=== PATIENT | female | born 1985 | race Caucasian/White ===

== ENCOUNTER 2017-04-28 16:42 | Emergency (ER) | payer OTHER, SELFPAY ==
[2017-04-28 16:56] VITALS: BP 118/67; PULSE 87; RESP 20; TEMP 37.1; O2SAT 100; BMI 35.6
--- NOTE | 2017-04-28 17:55 | HMH.EDUTC ---
[facility] [place]: [place]ed [place] Disposition: Home, Self-Care Condition on Discharge: Good Instructions: DI for Tooth Abscess, Tooth Abscess Additional Instructions: TYLENOL OR ibuprofen for pain Follow-up with dentist this week If symptoms worsen or do not improve return or be seen in the ER Prescriptions: Amoxicillin [Amoxicillin 500mg Tab] 500 mg PO BID 10 Days #20 tab Referrals: Dali Andrew PA [Primary Care Provider] - Time of Disposition: 18:08 Medical Decision Making Vital Signs: 04/28/17 16:56 Temperature 98.8 F Temperature Source Temporal Artery Scan Pulse Rate [Right Radial] 87 Respiratory Rate 20 Blood Pressure [Right Arm] 118/67 Blood Pressure Mean [Right Arm] 84 Blood Pressure Source [Right Arm] Automatic Cuff Blood Pressure Position [Right Arm] Sitting 02 Sat by Pulse Oximetry 100 Oxygen Delivery Method Room Air - Luis Felipe Inquiry Pt receiving controlled substance: No [facility] [place] - General Stated complaint: dental pain Time Seen by Provider: 04/28/17 17:56 Mode of Arrival: Ambulatory Source of Information: Patient Limitations: No Limitations Description of Symptoms (Recalled from Triage Doc. by RN): PATIENT STATES SHE IS HAVING DENTAL PAIN ON BOTTOM LEFT SIDE HEENT Symptoms (Recalled from RN notes): No Resp Symptoms (Recalled from RN notes): No Skin Symptoms (Recalled from RN notes): No MS Symptoms (Recalled from RN notes): No Functional Status (Recalled from RN notes): NA - History of Present Illness Provider Complaint: A 1-year-old female presents today for dental pain on the left lower gum. Patient states she has an abscess for over 4 months but has gotten worse the last 4 weeks. Patient states she has had abscess that burst and she felt the infection in her mouth and now has started to feel bad. - Related Data Home Medications Medication Instructions Recorded Confirmed Metoprolol Tartrate [Metoprolol 100 mg PO DAILY 04/28/17 04/28/17 Tartrate 100mg Tablet] Previous Rx's Medication Instructions Recorded Amoxicillin [Amoxicillin 500mg Tab] 500 mg PO BID 10 Days #20 tab 04/28/17 Allergies Allergy/AdvReac Type Severity Reaction Status Date / Time No Known Allergies Allergy Unverified 03/26/17 14:43 - Worker's Comp Is this a Worker's Comp case?: No Is this an [facility] Worker's Comp?: No Is this a [facility] Worker's Comp?: No [facility] History I have reviewed the patient's past medical history: Yes 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: Denies:: Cancer, Diabetes Mellitus Type 1, Diabetes Mellitus Type 2, Internal Pacemaker, MRSA Other Surgeries: No: Pacemaker Amputation: No Fractures: No - *Social History Educational Level: Attended 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iovascular: Reports system reviewed and no additional complaints, except as docu - Respiratory Respiratory: Yes system reviewed and no additional complaints, except as docu - Genitourinary Female Genitourinary: Reports system reviewed and no additional complaints, except as docu - Musculoskeletal Musculoskeletal: Reports system reviewed and no additional complaints, except as docu - Integumentary/Breasts Skin/Breast: Reports system reviewed and no additional complaints, except as docu - Neurologic Neurologic: Reports system reviewed and no additional complaints, except as docu Physical Exam - General General appearance
--- NOTE | 2017-04-28 17:59 | ED_ITS ---
[facility] [place]: [place]cessed [place] Disposition: Home, Self-Care Condition on Discharge: Good Instructions: DI for Tooth Abscess, Tooth Abscess Additional Instructions: TYLENOL OR ibuprofen for pain Follow-up with dentist this week If symptoms worsen or do not improve return or be seen in the ER Prescriptions: Amoxicillin [Amoxicillin 500mg Tab] 500 mg PO BID 10 Days #20 tab Referrals: Dali Andrew PA [Primary Care Provider] - Time of Disposition: 18:08 Medical Decision Making Vital Signs: 04/28/17 16:56 Temperature 98.8 F Temperature Source Temporal Artery Scan Pulse Rate [Right Radial] 87 Respiratory Rate 20 Blood Pressure [Right Arm] 118/67 Blood Pressure Mean [Right Arm] 84 Blood Pressure Source [Right Arm] Automatic Cuff Blood Pressure Position [Right Arm] Sitting 02 Sat by Pulse Oximetry 100 Oxygen Delivery Method Room Air - Luis Felipe Inquiry Pt receiving controlled substance: No [facility] [place] - General Stated complaint: dental pain Time Seen by Provider: 04/28/17 17:56 Mode of Arrival: Ambulatory Source of Information: Patient Limitations: No Limitations Description of Symptoms (Recalled from Triage Doc. by RN): PATIENT STATES SHE IS HAVING DENTAL PAIN ON BOTTOM LEFT SIDE HEENT Symptoms (Recalled from RN notes): No Resp Symptoms (Recalled from RN notes): No Skin Symptoms (Recalled from RN notes): No MS Symptoms (Recalled from RN notes): No Functional Status (Recalled from RN notes): NA - History of Present Illness Provider Complaint: A 1-year-old female presents today for dental pain on the left lower gum. Patient states she has an abscess for over 4 months but has gotten worse the last 4 weeks. Patient states she has had abscess that burst and she felt the infection in her mouth and now has started to feel bad. - Related Data Home Medications Medication Instructions Recorded Confirmed Metoprolol Tartrate [Metoprolol 100 mg PO DAILY 04/28/17 04/28/17 Tartrate 100mg Tablet] Previous Rx's Medication Instructions Recorded Amoxicillin [Amoxicillin 500mg Tab] 500 mg PO BID 10 Days #20 tab 04/28/17 Allergies Allergy/AdvReac Type Severity Reaction Status Date / Time No Known Allergies Allergy Unverified 03/26/17 14:43 - Worker's Comp Is this a Worker's Comp case?: No Is this an [facility] Worker's Comp?: No Is this a [facility] Worker's Comp?: No [facility] History I have reviewed the patient's past medical history: Yes 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: Denies:: Cancer, Diabetes Mellitus Type 1, Diabetes Mellitus Type 2, Internal Pacemaker, MRSA Other Surgeries: No: Pacemaker Amputation: No Fractures: No - *Social History Educational Level: Attended 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
== END 2017-04-28 18:11 | disposition home or self-care (01) ==
PROVIDERS: Emergency Provider Nurse Practitioner Family; Family Provider Physician Assistant; PCP Physician Assistant
DX: K04.7 Periapical abscess without sinus (principal); Z79.899 Other long term (current) drug therapy
CPT/HCPCS: 96372; 99201

== ENCOUNTER → 2017-11-06 10:02 | Outpatient (CLI) | payer OTHER, SELFPAY ==
--- NOTE | 2017-11-06 | MM_ITS ---
MM Dig mamm DX unilat RT CAD Right breast ultrasound complete with axilla: INDICATION: Probable abnormality in the right axillary region ORDERING PHYSICIAN: VERNON Finley PATIENT AGE: 32 years COMPARISON: None TECHNIQUE: Frontal views of the right breast along with right breast ultrasound. FINDINGS: Right breast ultrasound: Right breast ultrasound was originally performed showing some nonspecific areas of decreased echogenicity in the right axilla. Some of these areas had a somewhat flame shaped appearance. The lobular areas do not appear to elongate as breast tissue. A discrete mass was not able to be identified despite repeat imaging. There was some nondescript areas of decreased echogenicity. Axillary breast tissue may cause these findings. The patient also volunteer the information that the swelling in the right axilla fluctuated with her menstrual cycle Right mammogram: There is average to dense fibroglandular tissue. A marker is placed over the palpable abnormality. There does appear to be some maxillary breast tissue in this region with some nondescript fibroglandular elements noted. IMPRESSION: The findings are suggestive/consistent with right axillary/accessory breast tissue BI-RADS Category: 3 Benign Finding Short Term Follow-up RECOMMENDED FOLLOW-UP: 3M - 3 MONTH FOLLOWUP Recommend 3 month mammographic and sonographic follow-up (A letter has been sent to the patient regarding results of the study.)
--- NOTE | 2017-11-06 10:03 | US_ITS ---
US extremity RT limited CLINICAL INDICATION: ITS.REASON: right axilla swelling ORDERING PHYSICIAN: VERNON Finley PATIENT AGE: 32 years Comparison: None FINDINGS: General survey was performed of the right axilla. No discrete mass or fluid collection is evident. There is some heterogeneous echogenicity in the right axilla having the same echotexture as breast tissue. Suspect axillary breast tissue. The patient did volunteer the information that this area becomes more prominent with her menstrual cycle. A mammogram was performed of the right axilla and demonstrated some nonspecific areas of increased density which had the appearance of fibroglandular tissue interspersed with fat IMPRESSION: Heterogeneous echogenicity in the right axilla felt to represent axillary breast tissue. Recommend 6 month mammographic and sonographic follow-up to confirm stability. If palpable abnormality persists or becomes more prominent then, CT may be of further value
== END ==
PROVIDERS: Family Provider Physician Assistant; PCP Physician Assistant; Visit Provider Physician Assistant
DX: R22.31 Localized swelling, mass and lump, right upper limb (principal)
CPT/HCPCS: 76882; 77065

== ENCOUNTER → 2018-02-10 13:49 | Outpatient (CLI) | payer OTHER, SELFPAY ==
--- NOTE | 2018-02-10 13:51 | MM_ITS ---
MM Dig mamm DX unilat RT CAD, US breast RT complete Ordering Physician: VERNON Finley Patient Age: 32 years Female COMPARISON: Prior right mammogram November 06, 2017 CT chest December 2016 & December 01, 2017 INDICATION: And tender, palpable area upper-outer quadrant right breast. Right axillary thickness and pain. --DIAGNOSTIC RIGHT MAMMOGRAM with additional spot views towards axillary tail-- TECHNIQUE: Full CC, MLO view along with spot MLO views axillary tail & right axilla . Spot views in the area of palpable fullness, and tenderness. FINDINGS: The spot views towards the deep axillary region and region tenderness/fullness show no areas of concern. A skin marker is placed over this area.... If anything perhaps question some mild additional prominence of fatty tissue slightly bulging here-which could reflect lipoma here; but there is no significant mass. No areas of concern. Nor adenopathy at this specific area. Otherwise on the standard mammogram images today and previous studies show no areas of significant concern or abnormality. Breast tissue towards the axillary tail right breast is slightly more evident on right than left based on prior CT chest studies used as comparison, but does compress out on a combination of views. No change since Baseline November 2017 right mammogram On also note the patient had previous CT chest 2016, and November 2017.... Estimated these images show fibroglandular breast elements most evident towards upper-outer quadrant right breast more so than left but appear stable with no significant new findings November [address] chest RIGHT BREAST ULTRASOUND attention right axillary region Ultrasound was performed a focus seen on the axillary tail and axilla/CZ No no abnormalities identified. No areas of concern are identified. No cyst nor solid nodule. Mainly fatty tissue encountered. -------. IMPRESSION: 1. No areas of concern with imaging... No interval change The the tender/palpable fullness towards the towards axilla & deep axillary reveals no abnormalities on today's ultrasound nor mammogram images.. Only would note slight more focal fatty tissue axillary region on mammography spot views, at the palpable region....-This appearance Possibly could reflect a small underlying benign lipoma. It BI-RADS Category: 2 Benign Finding(s) RECOMMENDED FOLLOW-UP: 1YR 1 YEAR FOLLOW-UP A letter has been sent to the patient regarding results of the study.)
== END ==
PROVIDERS: PCP Physician Assistant; Visit Provider Physician Assistant
DX: R92.8 Other abnormal and inconclusive findings on diagnostic imaging of breast (principal)
CPT/HCPCS: 76641; 77065

== ENCOUNTER → 2018-02-24 11:25 | Outpatient (CLI) | payer OTHER, SELFPAY ==
--- NOTE | 2018-02-24 11:28 | XR_ITS ---
XR chest 2V HISTORY: Cough wheezing chest discomfort. ITS.REASON: Cough ORDERING PHYSICIAN: VERNON Finley PATIENT AGE: 32 years Technique: PA and lateral chest COMPARISON: 11/30/2017 CXRNovember 2017 FINDINGS:. The lungs are well expanded clear with no active disease. Normal pulmonary vascularity. The heart juliana and mediastinal structures appear satisfactory. There is mild dextrocurvature of the T-spine. This is similar to previous chest film from November. & February 2017 The cardiomediastinal silhouette and pulmonary vascularity are within normal limits. The lungs are clear without infiltrates, suspicious nodules, or pleural effusions. No acute bony abnormalities. IMPRESSION: Stable chest nothing definite acute. Mild dextroscoliosis T-spine again noted
== END ==
PROVIDERS: PCP Physician Assistant; Visit Provider Physician Assistant
DX: R05 Cough (principal)
CPT/HCPCS: 71046

== ENCOUNTER → 2018-03-10 10:49 | Outpatient (CLI) | payer OTHER, SELFPAY ==
[2018-03-10 11:18] LABS: Basophils % 0.7 % (0.1-2.0); Eosinophils # 0.4 K/mm3 (0.0-0.4); Eosinophils % 8.3 % (0.1-12.0); Hematocrit 39.1 % (37.0-47.0); Hemoglobin 12.8 g/dL (12.2-16.2); Lymphocytes # 1.5 K/mm3 (0.7-4.5); Lymphocytes % 28.3 % (10-50); Mean Corpuscular HGB Conc 32.6 g/dL (31.8-35.4); Mean Corpuscular Hemoglobin 28.6 pg (27.0-31.2); Mean Corpuscular Volume 87.8 fl (81-99); Mean Platelet Volume 7.5 fl (7.4-10.4); Monocytes # 0.3 K/mm3 (0.1-1.0); Monocytes % 6.2 % (1.7-9.3); Neutrophils % 56.6 % (37.0-80.0); Platelet Count 276 K/mm3 (142-424); Red Blood Count 4.45 M/mm3 (4.20-5.40); Red Cell Distribution Width 13.4 % (11.5-17.5); White Blood Count 5.3 K/mm3 (4.8-10.8)
[2018-03-10 13:10] LABS: Alanine Aminotransferase 23 U/L (12-78); Albumin Level 3.7 gm/dL (3.4-5.0); Alkaline Phosphatase 78 U/L (46-116); Anion Gap 13.2 mEq/L (5-15); Aspartate Amino Transferase 15 U/L (15-37); Bilirubin,Total 0.5 mg/dL (0.2-1.0); Blood Urea Nitrogen 8 mg/dL (7-18); Calcium 8.8 mg/dL (8.5-10.1); Carbon Dioxide 26 mmol/L (21.0-32.0); Chloride 105 mmol/L (98-107); Creatinine,Serum 0.65 mg/dL (0.55-1.02); Estimated Glomerular Filt Rate 104 ml/min (>60); GFR (African American) 126 ML/MIN (>60); Globulin 3.8 gm/dl (1.3-3.2); Glucose 89 mg/dL (74-106); Potassium 4.2 mmoL/L (3.5-5.1); Sodium 140 mmol/L (136-145); Total Protein,Serum 7.5 gm/dL (6.4-8.2)
== END ==
PROVIDERS: Visit Provider Surgery
DX: Z01.818 Encounter for other preprocedural examination (principal)
CPT/HCPCS: 36415; 80053; 85025

== ENCOUNTER → 2019-03-16 13:07 | Outpatient (CLI) | payer OTHER, SELFPAY ==
--- NOTE | 2019-03-16 13:09 | US_ITS ---
PROCEDURE: MM DIG MAMM BI DX W/CAD CLINICAL INDICATION: 1 yr fu-- rt breast nodule the COMPARISON: DXRT MM Dig mamm DX unilat RT CAD from 11/06/2017 DXRT MM Dig mamm DX unilat RT CAD from 02/10/2018 US BREAST RT COMPLETE from 03/16/2019 TECHNIQUE: Standard images performed along with spot compression views and right breast ultrasound FINDINGS: Average fibroglandular tissue. No malignant appearing mass or malignant-appearing microcalcification. There is asymmetric density once again noted in the upper outer aspect of the right breast. This is not significantly changed from 11/06/2017 consistent with asymmetric fibroglandular tissue. There is some lucency noted in this region which may be due to a lipoma as well Right breast ultrasound: No cystic or solid lesions evident within the breast. Small nodes are present in the axilla. IMPRESSION: BI-RAD Category: 2 Benign Finding(s) FOLLOW-UP: 1YR 1 Year Follow-up (A letter has been sent to the patient regarding results of the study.) Dictated by: Steve Vivas MD 03/21/2019 10:52 Electronically signed by Steve Vivas MD in [facility] 03/21/2019 10:52
== END ==
PROVIDERS: PCP Physician Assistant; Visit Provider Surgery
DX: N63.10 Unspecified lump in the right breast, unspecified quadrant (principal); N64.4 Mastodynia
CPT/HCPCS: 76641; 77066

== ENCOUNTER → 2019-05-28 09:24 | Outpatient (CLI) | payer OTHER, SELFPAY ==
--- NOTE | 2019-05-28 09:37 | CT_ITS ---
PROCEDURE: CT ABDOMEN PELVIS WO CON CLINICAL INDICATION: Right flank pain, hematuria COMPARISON: ABDPELW/O CT ABD PELVIS W/O CONTRAST from 11/28/2016 TECHNIQUE: Axial images obtained with sagittal and coronal reformats. All CT scans at the facility use one or more dose reduction, viz: automated exposure control, ma/kV adjustment per patient size (including targeted exams where dose is matched to indication, i.e. head), or iterative reconstruction technique. FINDINGS: LOWER THORAX: No acute finding. There is lingular scarring. ABDOMEN & PELVIS: The liver, spleen, pancreas, adrenal glands, and kidneys show no acute finding. No intestinal obstruction or free air. No evidence of appendicitis or diverticulitis. No pelvic mass, abnormal fluid collection, or focal inflammatory change of the pelvis. No acute bony anomalies. 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 Metallic intrauterine device is in place. The urinary bladder is nondistended. Increased attenuation with gas collections are seen in the subcutaneous fat planes over the right gluteal region. Site of medicinal injection is suspected. Clinical correlation is recommended. Infection could cause this appearance. IMPRESSION: No acute finding Dictated by: Celestine Li 05/28/2019 10:20 Electronically signed by Celestine Li in [facility] 05/28/2019 10:20
== END ==
PROVIDERS: PCP Physician Assistant; Visit Provider Physician Assistant
DX: R10.9 Unspecified abdominal pain (principal); R31.9 Hematuria, unspecified
CPT/HCPCS: 74176

== ENCOUNTER 2019-12-11 15:10 | Emergency (ER) | payer OTHER, SELFPAY ==
[2019-12-11 15:24] VITALS: BP 133/91; PULSE 101; RESP 19; TEMP 37.1; O2SAT 98; BMI 33.0
--- NOTE | 2019-12-11 15:30 | HMH.EDUTC ---
[facility] [place] Disposition Clinical Impression: Tooth pain Insect bite Qualifiers: Site of insect bite: ankle Laterality: right Disposition: Home, Self-Care Condition on Discharge: Good Instructions: DI for Dental Pain, Ibuprofen, Acetaminophen (Alternative Therapy) Additional Instructions: Continue taking Amoxicillin and follow up with Dentist as scheduled *Use dental balls as advised in the [facility] Over the counter Motrin and/or Tylenol as advised on the package for pain and fever Follow up with Family doctor if needed FOllow up with Dentist as scheduled Return if needed Straight to ER if any life threatening symptoms Prescriptions: Mupirocin [Bactroban 2% Ointment 22gm tube] 1 applicatio TP TID 10 Days #1 tube Transmission Status: Pending to [id number] Referrals: Dali Andrew PA [Primary Care Provider] - As needed Time of Disposition: 15:39 Medical Decision Making - Luis Felipe Inquiry Pt receiving controlled substance: No Luis Felipe was queried for this patient: No Vital Signs: 12/11/19 15:24 Temperature 98.7 F Temperature Source Oral Pulse Rate [Right Brachial] 101 H Respiratory Rate 19 Blood Pressure [Right Arm] 133/91 H Blood Pressure Mean [Right Arm] 105 Blood Pressure Source [Right Arm] Automatic Cuff Blood Pressure Position [Right Arm] Sitting 02 Sat by Pulse Oximetry 98 Oxygen Delivery Method Room Air [facility] [place] HPI - General Stated complaint: dental pain spider bite/sting on R ankle Time Seen by Provider: 12/11/19 15:31 Mode of Arrival: Ambulatory Source of Information: Patient Limitations: No Limitations Description of Symptoms (Recalled from Triage Doc. by RN): PATIENT C/O DENTAL PAIN AND BLISTER TO BACK OF RIGHT ANKLE X 3 DAYS. SHE WAS PRESCRIBED AMOXICILLIN ON 12/08 BUT STATES IT'S NOT BETTER HEENT Symptoms (Recalled from RN notes): Yes Resp Symptoms (Recalled from RN notes): No Skin Symptoms (Recalled from RN notes): Yes MS Symptoms (Recalled from RN notes): No Functional Status (Recalled from RN notes): WNL - History of Present Illness Provider Complaint: Patient states that she has been having dental pain from a broken filling States that she saw the Dentist on Saturday and was given amoxicillin but still having pain Denies swelling or abscess. States that also she has been cleaning out an estate and thinks she may have been bitten by spiders States that she noticed blister like area on her right ankle area and she has been using neosporin on it but not got any better - Related Data Home Medications Medication Instructions Recorded Confirmed Amoxicillin [Amoxicillin 500mg 500 mg PO Q6H 12/11/19 12/11/19 Cap] Previous Rx's Medication Instructions Recorded Mupirocin [Bactroban 2% Ointment 1 applicatio TP TID 10 Days #1 tube 12/11/19 22gm tube] Allergies Allergy/AdvReac Type Severity Reaction Status Date / Time No Known Allergies Allergy Verified 05/28/19 08:51 - Worker's Comp Is this a Worker's Comp case?: No [facility] History - Hepatitis A Screen Drug use history?: No High risk sexual behaviors?: No History of sexually transmitted infection?: No Currently employed?: No Childcare worker?: No Do you have indoor plumbing?: Yes Do you have electricity?: Yes Attestation statement:: This patient has been screened for Hepatitis A risk factors. I have reviewed the patient's past medical history: Yes 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: Reports:: Arrhythmia, Hypertension, Pulmonary Embolism Denies:: Cancer, Diabetes Mellitus Type 1, Diabetes Mellitus Type 2, Internal Pacemaker, MRSA, Seizures Other 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: Denies: Blood Transfusion Reaction Other Surgeries: Yes: No Previous Surgery, Other. No: Pacemaker Amputation: No Fractures: Yes (ARM) Comment: Dental surgery - Social History Smoking Status: Never smoker Alcohol Intake: never Alcohol Intake Frequency:: a few times a month Substance Use Type: denies use Occupational Status: other Housing: house
[2019-12-11 15:48] VITALS: BP 133/91; PULSE 101; RESP 19; TEMP 37.1; O2SAT 98
== END 2019-12-11 15:50 | disposition home or self-care (01) ==
PROVIDERS: Emergency Provider Nurse Practitioner; PCP Physician Assistant
DX: K08.89 Other specified disorders of teeth and supporting structures (principal); S90.561A Insect bite (nonvenomous), right ankle, initial encounter; W57.XXXA Bitten or stung by nonvenomous insect and other nonvenomous arthropods, initial encounter; I10 Essential (primary) hypertension; Z86.711 Personal history of pulmonary embolism
CPT/HCPCS: 99201

== ENCOUNTER → 2019-12-15 17:35 | Outpatient (CLI) | payer OTHER, SELFPAY | PROVIDERS: Visit Provider Physician Assistant | DX: W57.XXXA Bitten or stung by nonvenomous insect and other nonvenomous arthropods, initial encounter (principal); M25.571 Pain in right ankle and joints of right foot | CPT/HCPCS: 87070; 87077; 87186; 87205 ==

== ENCOUNTER 2020-03-26 11:56 | Emergency (ER) | payer OTHER, SELFPAY ==
[2020-03-26 12:00] VITALS: BP 136/77; PULSE 96; RESP 16; TEMP 36.9; O2SAT 96; BMI 36.0
--- NOTE | 2020-03-26 12:29 | HMH.EDUTC ---
[facility] [place] Clinical Impression: Exposure to COVID-19 virus, Absent sense of smell Disposition: Home, Self-Care Condition on Discharge: Good Instructions: Preventing the Spread of Coronavirus Discharge Instructions Additional Instructions: Drink plenty of fluids. Take tylenol for pain or fever. Return if you begin to have difficulty breathing. Follow up with your regular doctor. GO TO THE ER FOR ANY WORSENING SYMPTOMS Referrals: Sai Talbert MD [Primary Care Provider] - Time of Disposition: 12:33 Medical Decision Making - Medical Records Medical records reviewed: No: I reviewed the patient's medical records. - Luis Felipe Inquiry Pt receiving controlled substance: No Vital Signs: 03/26/20 12:00 03/26/20 12:33 Temperature 98.5 F 98.5 F Temperature Source Oral Pulse Rate 96 H Pulse Rate [Right Brachial] 96 H Respiratory Rate 16 16 Blood Pressure 136/77 Blood Pressure [Right Arm] 136/77 Blood Pressure Mean [Right Arm] 96 Blood Pressure Source [Right Arm] Automatic Cuff Blood Pressure Position [Right Arm] Sitting 02 Sat by Pulse Oximetry 96 Oxygen Delivery Method Room Air - Lab Data Lab Results 03/26/20 12:05: SARS-CoV-2 (PCR) Not detected [facility] [place] - General Stated complaint: loss of taste Time Seen by Provider: 03/26/20 12:29 Mode of Arrival: Ambulatory Source of Information: Patient Limitations: No Limitations Description of Symptoms (Recalled from Triage Doc. by RN): PATIENT C/O LOSS OF TASTE AND SMELL THAT STARTED LAST NIGHT AND COUGH THAT HAS BEEN ON AND OFF FOR SEVERAL DAYS HEENT Symptoms (Recalled from RN notes): Yes Resp Symptoms (Recalled from RN notes): Yes Skin Symptoms (Recalled from RN notes): No MS Symptoms (Recalled from RN notes): No Functional Status (Recalled from RN notes): WNL - History of Present Illness Provider Complaint: She states that since yesterday she has had trouble tasting or smelling her food or anything else. She denies feeling bad. She denies any known exposure to covid. - Related Data Allergies Allergy/AdvReac Type Severity Reaction Status Date / Time No Known Allergies Allergy Verified 12/15/19 13:10 - Worker's Comp Is this a Worker's Comp case?: No [facility] History - Hepatitis A Screen Drug use history?: No High risk sexual behaviors?: No History of sexually transmitted infection?: No Currently employed?: No Childcare worker?: No Do you have indoor plumbing?: Yes Do you have electricity?: Yes Attestation statement:: This patient has been screened for Hepatitis A risk factors. I have reviewed the patient's past medical history: Yes 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: Reports:: Arrhythmia, Hypertension, Pulmonary Embolism Denies:: Cancer, Diabetes Mellitus Type 1, Diabetes Mellitus Type 2, Internal Pacemaker, MRSA, Seizures Other 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: Denies: Blood Transfusion Reaction Other Surgeries: Yes: No Previous Surgery, Other. No: Pacemaker Amputation: No Fractures: Yes (ARM) Comment: Dental surgery - Social History Smoking Status: Never smoker Alcohol Intake: never Alcohol Intake Frequency:: a few times a month Substance Use Type: denies use Occupational Status: other Housing: house Household Members: family Family Hx:: No significant family history ROS Obtained: Yes All systems reviewed & no additional complaints - Constitutional Constitutional: Reports system reviewed and no additional complaints, except as docu - Eyes Eyes: Reports system reviewed and no additional complaints, except as docu - ENT Ears, Nose, Mouth, and Throat: Reports system reviewed and no additional complaints, except as docu - Cardiovascular Cardiovascular: Reports system reviewed and no additional complaints, except as docu - Respiratory Respiratory: Yes system reviewed and no additional complaints, except as docu - Gastrointestinal Gastrointestingal: Reports: system reviewed and no additional complaints, except as docu Physi
[2020-03-26 12:33] VITALS: BP 136/77; PULSE 96; RESP 16; TEMP 36.9; O2SAT 96
[2020-03-27 08:26] LABS: Covid-19 Nasal PCR Sendout UK Not Detected
== END 2020-03-26 12:35 | disposition home or self-care (01) ==
PROVIDERS: Emergency Provider Nurse Practitioner Family; PCP Emergency Medicine
DX: Z20.828 Contact with and (suspected) exposure to other viral communicable diseases (principal); R43.9 Unspecified disturbances of smell and taste; I10 Essential (primary) hypertension
CPT/HCPCS: 99201; U0003

== ENCOUNTER → 2020-04-21 10:58 | Outpatient (CLI) | payer OTHER, SELFPAY ==
--- NOTE | 2020-04-21 11:04 | XR_ITS ---
PROCEDURE: XR RIBS RT MIN 3V W CXR1V CLINICAL INDICATION: right rib pain COMPARISON: CR CXR2V XR chest 2V from 11/30/[address] angio chest from 12/01/2017 CR CXR2V XR chest 2V from 02/24/2018 CR XR CHEST 2V from 11/26/2018 FINDINGS: Frontal view of the chest shows no acute finding. There is a faint opacity in the left mid lower lung zone overlying the 5th rib anteriorly nonspecific. There is mild midthoracic curvature convex right. No rib fracture dislocation or lytic or blastic change is evident. IMPRESSION: Negative right ribs Dictated by: Steve Vivas MD 04/21/2020 16:35 Steve Vivas MD in [place] 04/21/2020 16:35
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
--- NOTE | 2020-04-21 11:04 | XR_ITS ---
PROCEDURE: XR HIP RT 2-3V W/PELVIS CLINICAL INDICATION: LBP radiating into right hip Right hip pain COMPARISON: No exams were available for comparison FINDINGS: No fracture or dislocation is evident. No significant degenerative change. No lytic or blastic change. Unremarkable soft tissues. An IUD is in place. Spina bifida occulta involves the L5 vertebral body. IMPRESSION: Negative right hip Dictated by: Steve Vivas MD 04/21/2020 16:36 Steve Vivas MD in [place] 04/21/2020 16:36
[2020-04-21 16:12] LABS: Basophils % 0.5 % (0.1-2.0); Eosinophils # 0.1 K/mm3 (0.0-0.4); Eosinophils % 1.4 % (0.1-12.0); Hematocrit 44.6 % (37.0-47.0); Hemoglobin 14.7 g/dL (12.2-16.2); Lymphocytes # 1.9 K/mm3 (0.7-4.5); Mean Corpuscular HGB Conc 32.9 g/dL (31.8-35.4); Mean Corpuscular Volume 91.3 fl (81-99); Mean Platelet Volume 9.2 fl (7.4-10.4); Monocytes # 0.3 K/mm3 (0.1-1.0); Monocytes % 5.6 % (1.7-9.3); Neutrophils # 3.5 K/mm3 (1.8-7.8); Neutrophils % 59.5 % (37.0-80.0); Platelet Count 329 K/mm3 (142-424); Red Blood Count 4.89 M/mm3 (4.20-5.40); Red Cell Distribution Width 13.1 % (11.5-17.5); White Blood Count 5.8 K/mm3 (4.8-10.8)
[2020-04-21 16:18] LABS: Alanine Aminotransferase 14 U/L (12-78); Albumin Level 4.5 g/dl (3.5-5.0); Albumin/Globulin Ratio 1.4 (1.1-1.8); Alkaline Phosphatase 70 U/L (38-126); Anion Gap 13.9 mEq/L (5-15); Aspartate Amino Transferase 27 U/L (14-36); Bilirubin,Total 0.5 mg/dl (0.2-1.3); Blood Urea Nitrogen 9 mg/dl (7-17); Carbon Dioxide 27 mmol/L (22.0-30.0); Chloride 102 mmol/L (98-107); Chol/HDL Ratio 3.4 (1-3.5); Cholesterol 185 mg/dl (140-200); Estimated Glomerular Filt Rate 95 ml/min (>60); GFR (African American) 115 ML/MIN (>60); Globulin 3.2 g/dL (1.3-3.2); Glucose 88 mg/dl (74-100); HDL Cholesterol 54 mg/dl (40-60); Potassium 4.9 mmoL/L (3.5-5.1); Sodium 138 mmol/L (136-145); Total Protein,Serum 7.7 g/dl (6.3-8.2); Triglycerides 126 mg/dl (30-150); VLDL Cholesterol 25 mg/dL (0-40)
[2020-04-21 16:29] LABS: Direct LDL Cholesterol 98.56 mg/dL (100-129)
[2020-04-21 16:36] LABS: 25-OH Vitamin D, Total 34.7 ng/mL (30-100)
[2020-04-21 16:49] LABS: Thyroid Stimulating Hormone 2.59 uIU/mL (0.465-4.68)
== END ==
PROVIDERS: PCP Physician Assistant; Visit Provider Physician Assistant
DX: M25.551 Pain in right hip (principal); M54.5 Low back pain; M54.9 Dorsalgia, unspecified; Z68.35 Body mass index [BMI] 35.0-35.9, adult; I10 Essential (primary) hypertension
CPT/HCPCS: 71101; 72114; 73502; 80053; 80061; 82306; 84439; 84443; 85025

== ENCOUNTER → 2020-08-05 16:04 | Outpatient (CLI) | payer OTHER, SELFPAY ==
--- NOTE | 2020-08-05 16:04 | MR_ITS ---
PROCEDURE: MR CERVICAL SPINE WO CON CLINICAL INDICATION: numbness both hands, dropping things Pt c/o numbness in both hands and neck pain. No known injury or trauma. ? MS lesions. COMPARISON: No exams were available for comparison TECHNIQUE: Standard multiplanar multiecho sequences are performed without contrast. 3-D MIP and myelographic images are also rendered and reviewed FINDINGS: There is normal alignment. The craniocervical junction has an unremarkable appearance. There is mild reversal of the cervical lordosis. C2-C3: Unremarkable. C3-C4: 2 mm anterolisthesis of C3 with minimal bulging disc with minimal effacement of the cord anteriorly C4-C5, C5-C6, C6-C7, and C7-T1 have an unremarkable appearance. No obvious cervical plaques apparent. If multiple sclerosis is a consideration then pre and post enhanced images and gradient echo images would be indicated. IMPRESSION: 1. Mild reversal of the cervical lordosis which could be due to patient positioning or muscle spasm. 2. Minimal bulging disc at C3-C4 with minimal indentation of the cord anteriorly. 3. No obvious cervical plaques apparent. If multiple sclerosis is a consideration then pre and post enhanced images and gradient echo images would be indicated. Dictated by: Steve Vivas MD 08/08/2020 06:47 Steve Vivas MD in [place] 08/08/2020 06:47
--- NOTE | 2020-08-05 16:04 | MR_ITS ---
PROCEDURE: MR LUMBAR SPINE WO CON CLINICAL INDICATION: LBP, foot drop, spina bifida Pt c/o lbp with bilateral foot drop. Pt has known hx of spina bifida. Denies hx of injury or trauma. ? MS lesions. COMPARISON: No exams were available for comparison TECHNIQUE: Standard multiplanar multiecho sequences are performed without contrast. 3-D MIP and myelographic images are also rendered and reviewed FINDINGS: There is slight reversal the thoracolumbar lordosis. Spinal cord ends at the L1-L2 level. The lower spinal cord has an unremarkable appearance. T12-L1: Mild degenerative disc disease. L1-L2: Mild degenerative disc disease with minimal right paracentral disc protrusion L2-L3 and L3-L4 have an unremarkable appearance. L4-5: Minimal central disc protrusion with small annular fissure. No impingement. Facet and ligamentum hypertrophic change with mild bilateral lateral recess narrowing. L5-S1: Degenerative disc disease with bulging disc and a small broad-based central disc protrusion slightly eccentric toward the right. Facet and ligamentum hypertrophic change. Mild bilateral foraminal narrowing. No extruded herniated disc or canal stenosis. IMPRESSION: 1. L1-L2: Mild degenerative disc disease with minimal right paracentral disc protrusion 2. L4-5: Minimal central disc protrusion with small annular fissure. No impingement. Facet and ligamentum hypertrophic change with mild bilateral lateral recess narrowing. 3. L5-S1: Degenerative disc disease with bulging disc and a small broad-based central disc protrusion slightly eccentric toward the right. Facet and ligamentum hypertrophic change. Mild bilateral foraminal narrowing. 4. No extruded herniated disc or canal stenosis Dictated by: Steve Vivas MD 08/08/2020 06:53 Steve Vivas MD in [place] 08/08/2020 06:53
== END ==
PROVIDERS: PCP Physician Assistant; Visit Provider Physician Assistant
DX: M54.2 Cervicalgia (principal); M54.5 Low back pain; R20.0 Anesthesia of skin; R20.2 Paresthesia of skin
CPT/HCPCS: 72141; 72148; 76376

== ENCOUNTER → 2020-08-22 14:53 | Outpatient (CLI) | payer OTHER, SELFPAY ==
--- NOTE | 2020-08-22 14:55 | XR_ITS ---
PROCEDURE: XR LUMBAR SPINE 2-3V CLINICAL INDICATION: low back pain COMPARISON: CR XR LUMBAR SPINE 6V W BENDING from 04/21/2020 FINDINGS: No fracture or dislocation. No lytic or blastic change. There is normal mineralization. There are 6 lumbar segments as previously described with spine bifida occulta at L6. Bilateral pars defects are present at L6 with minimal anterolisthesis of L6 on S1 by approximately 4 mm.. Mild degenerative disc disease at the lumbosacral junction. Other findings:None. IMPRESSION: Mild degenerative disc disease at the lumbosacral junction with minimal anterolisthesis and bilateral pars defects of L6. Overall not significantly changed. Dictated by: Steve Vivas MD 08/22/2020 16:51 Steve Vivas MD in [place] 08/22/2020 16:51
--- NOTE | 2020-08-22 14:55 | XR_ITS ---
PROCEDURE: XR SACRUM COCCYX MIN 2V CLINICAL INDICATION: low back pain COMPARISON: CT CT ABDOMEN PELVIS WO CON from 05/28/2019 FINDINGS: There is anterior subluxation of the tip of the coccyx approximately 7 mm with anterior angulation which appears chronic compared to an older CT scan of 05/28/2019.. No fracture apparent. No lytic or blastic change apparent. Other findings:There is an IUD in place. Spina bifida occulta is present at L5. IMPRESSION: As above, no acute finding. Chronic anterior subluxation and anterior angulation the tip of the coccyx Dictated by: Steve Vivas MD 08/22/2020 16:49 Steve Vivas MD in [place] 08/22/2020 16:49
== END ==
PROVIDERS: PCP Physician Assistant; Visit Provider Specialist
DX: M54.5 Low back pain (principal)
CPT/HCPCS: 72100; 72220

== ENCOUNTER → 2020-09-15 14:46 | Outpatient (POV) | payer OTHER, SELFPAY ==
[2020-09-15 15:25] VITALS: BP 143/84; PULSE 130; RESP 18; O2SAT 96; BMI 35.0
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
== END ==
PROVIDERS: Visit Provider Clinical Nurse Specialist Family Health
DX: M47.896 Other spondylosis, lumbar region (principal); M54.16 Radiculopathy, lumbar region
CPT/HCPCS: 99202; G0463

== ENCOUNTER 2020-09-23 08:33 | Day surgery (SDC) | payer OTHER, SELFPAY ==
[2020-09-23 08:58] VITALS: BP 129/81; PULSE 83; RESP 18; TEMP 36.4; O2SAT 98; BMI 34.0
[2020-09-23 09:40] VITALS: BP 116/67; PULSE 97; RESP 20; O2SAT 97
[2020-09-23 09:41] VITALS: BP 139/85; PULSE 79; RESP 20; O2SAT 96
--- NOTE | 2020-09-23 09:43 | HMH.PMPROC ---
- Procedure Date: 09/23/20 Time: 09:43 Anesthesiologist:: Soila Dasilva MD Complications:: None Pre-procedure Diagnosis:: Lumbar radiculopathy, degenerative disc disease of the lumbar spine Post-procedure Diagnosis:: Same Indications for Procedure:: Is a very pleasant 35-year-old female who presents today with low back pain radiating down both legs related to the above diagnosis. She has trialed and failed conservative treatment including oral pain medications and home stretching program. She presents today for lumbar epidural steroid injection at L4-L5 #1. Procedure Details:: Informed consent was obtained and the risk and benefits of the procedure was explained to the patient. The patient was taken to the procedure room. The patient was placed prone on the procedure table. The patient was prepped and draped in sterile fashion. C-arm fluoroscopy was used to view the lumbar spine. Skin and subcutaneous tissues were anesthetized using lidocaine. I placed an 18-gauge epidural needle and advanced into the L4-L5 interspace using fluoroscopic guidance and [id number] to air and saline. After confirmation of needle placement in the epidural space with dye I injected 2 mL of lidocaine 1.5% with Depo-Medrol 80 mg. Patient tolerated the procedure well with no complications. Plan and Disposition:: Follow-up with the patient in 2 to 3 weeks. Will reevaluate pain symptoms at that time.
[2020-09-23 15:29] VITALS: BP 136/88; PULSE 75; RESP 18; TEMP 36.4; O2SAT 98
== END 2020-09-23 09:55 | disposition home or self-care (01) ==
LOC: SC.PAINP 08:37
PROVIDERS: PCP Physician Assistant; Visit Provider Anesthesiology Pain Medicine
DX: M51.16 Intervertebral disc disorders with radiculopathy, lumbar region (principal); Z86.711 Personal history of pulmonary embolism
CPT/HCPCS: 62323; J1040; Q9966

== ENCOUNTER 2020-10-17 15:30 | Outpatient (RCR) | payer OTHER, SELFPAY ==
--- NOTE | 2020-09-19 16:59 | HMH.PTOPEV ---
PT Outpatient Evaluation Rehab PT Outpatient Evaluation Start: 09/19/20 15:59 Freq: Status: Active Protocol: Document 09/19/20 16:49 NICOLERAFAEL (Rec: 09/19/20 16:59 PWRAFAEL [id number]) Electronically Signed By Carlos Chavez PT 09/19/20 16:49 Outpatient Therapy Subjective History Subjective History This is the initial Physical Therapy evaluation for Jeanie Vergara. Pt is a 35 y/o female referred to PT for c/o LBP. Pt reports long history of 10+ years of LBP. Pt states she will have flare ups and will have improvment in a few days to weeks. This bout began ~ 8 months ago and patient has had no relief from pain. Pt reports she has radicular S&S that go into BLE, shooting pain to feet. Pt reports c/o pain in B hips and paresthesia in B hands. Chief Complaint Pain,Paresthesia Symptom Type Ache,Throb,Sharp,Dull,Stabbing ,Burning,Numbness,Tingling, Shooting Symptoms Relieved By Rest/Positioning,Prescription Meds Symptoms Aggravated By Physical Activity Prior Functional Limitations None Current Functional Limitations Housework,Driving,Sleeping, Recreation Activity,Bending/ Stooping Symptom Description Constant but Variable Pain scale - at its best (0-10) 3 Pain scale - at its worst (0-10) 9 Cervical Eval AROM Cervical Spine Extension Active Range of 40 Motion (degrees) Cervical Spine Flexion Active Range of 60 Motion (degrees) Cervical Spine Right Lateral Flexion 35 Active Range of Motion (degrees) Cervical Spine Left Lateral Flexion 35 Active Range of Motion (degrees) Special Test C-Spine Foraminal Compression (Spurling) Negative Left,Negative Right Test C-Spine Foraminal Distraction Test Positive C-Spine Compression Test Negative Left,Negative Right Lumbopelvic Eval Assistive device Assistive Devices Straight Cane Palapation tenderness bilateral lumbar spinal tenderness Yes paraspinal tenderness Yes buttock tenderness No Lumbar/Sacral Palpation Findings Tenderness Range of Motion Lumbar Spine ROM Reason Not Measured Within Functional Limits Special Tests Lumbar Spine Screen Positive Forward Bending Test- Standing
== END 2020-10-17 15:35 | disposition home or self-care (01) ==
LOC: PT 15:30
PROVIDERS: PCP Physician Assistant; Visit Provider Specialist
DX: M54.16 Radiculopathy, lumbar region (principal); M54.2 Cervicalgia
CPT/HCPCS: 97163

== ENCOUNTER → 2020-11-10 08:58 | Outpatient (POV) | payer OTHER, SELFPAY ==
[2020-11-10 09:16] VITALS: BP 140/98; PULSE 117; RESP 18; O2SAT 98; BMI 34.2
--- NOTE | 2020-11-10 09:43 | HMH.PAINSOAP ---
[facility] Pain Management SOAP Note Subjective:: Patient is a pleasant 35-year-old white female who presents today for a follow-up. She had lumbar epidural steroid injection on September 23, 2020. She states that she did get adequate relief in her back pain with this injection. Today she is complaining of tailbone pain and radiating pain into her groin and buttock area. She is rating her pain today an 8 out of 10. The patient is having other difficulties such as shooting leg pains and cramping sensations in bilateral feet. She is currently being seen by Dr. Hernández for possible diagnosis of MS. She complains of increasing pain with prolonged sitting. She has tried and failed conservative therapies in the past such as continued at home stretching and exercise program for greater than 6 weeks, and oral medications. She is not currently prescribed any controlled substances from our office. Her Luis Felipe number is [id number] Objective:: Physical exam General: Alert and oriented x3 no acute distress, pleasant and cooperative, [on room air] Lungs: Respirations even and unlabored, symmetrical chest expansion Eyes: PERRL Musculoskeletal: Flexion and extension of the lumbar spine nonguarded, deep tendon reflexes normal, strength in upper and lower extremities 5 out of 5 normal gait noted positive Vinayak's, compression and distraction exam bilaterally Neurological: Speech clear, debate director equal, no gross sensory deficit Assessment:: Degenerative disc disease of the lumbar spine, lumbar radiculopathy, bilateral sacroiliitis Plan:: She did get adequate relief from her epidural injection. She feels that the pain she is experiencing today is different. It is mostly over her tailbone and radiating into her groin. We will schedule the patient for bilateral SI joint injections. The procedure, risk and benefits were all discussed with the patient today. The patient is also unsatisfied with the care she is receiving by Dr. Hernández's office. She is requesting referral to a different neurologist. We can certainly refer the patient to a neurologist in [place]. If she has any questions or concerns she can contact the clinic. Dr. Bowers has reviewed this note and agrees with this plan of care. This note was dictated using voice recognition software and make contain errors or omissions. [facility] History 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: Reports:: Arrhythmia, Atrial Fibrillation, Hypertension, Palpitations, Pulmonary Embolism, Transient Ischemic Attacks (TIA) (2017) Denies:: Cancer, Diabetes Mellitus Type 1, Diabetes Mellitus Type 2, Internal Pacemaker, MRSA, Seizures *Have you ever received a pneumonia vaccine?: No *Have you received a flu vaccine this season?: No Other 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: Denies: Blood Transfusion Reaction Other Surgeries: Yes: No Previous Surgery, Other. No: Pacemaker Amputation: No Fractures: Yes (ARM) - *Social History Smoking Status: Never smoker Alcohol Intake: never Alcohol Intake Frequency:: holidays/special occasions only Substance Use Type: denies use *Occupational Status:: unemployed Housing: house Household Members: family *Travel in the last 8 weeks: None Family Hx:: Bleeding Disorder, Alcoholism, Mental illness
== END ==
PROVIDERS: PCP Physician Assistant; Visit Provider Family Medicine
DX: M51.16 Intervertebral disc disorders with radiculopathy, lumbar region (principal); M46.1 Sacroiliitis, not elsewhere classified
CPT/HCPCS: 99212; G0463

== ENCOUNTER 2020-11-25 11:24 | Day surgery (SDC) | payer OTHER, SELFPAY ==
[2020-11-25 11:46] VITALS: BP 129/79; PULSE 91; RESP 19; TEMP 36.6; O2SAT 97; BMI 34.2
[2020-11-25 11:51] VITALS: BP 148/97; PULSE 99; RESP 18; O2SAT 97
[2020-11-25 11:55] VITALS: BP 143/94; PULSE 88; RESP 18; O2SAT 99
--- NOTE | 2020-11-25 12:02 | HMH.PMPROC ---
- Procedure Date: 11/25/20 Time: 12:02 Anesthesiologist:: Alphonso Bowers MD Complications:: None Pre-procedure Diagnosis:: Sacroiliitis Post-procedure Diagnosis:: Same Indications for Procedure:: Patient is a pleasant 35-year-old white female who we are treating for low back pain with lumbar radiculopathy symptoms and bilateral sacroiliitis. She is doing very well from her last lumbar pleural steroid injection. She now has pain over both hips. She is tender over both SI joints. She does have positive Vinayak's test bilaterally. She is positive Cuong test bilaterally. She is positive SI joint compression test bilaterally. She has a positive distraction test bilaterally. We will do bilateral SI joint injections today to help her with her pain symptoms. She is also awaiting an appointment with a neurologist in [place] for diagnosis and management of possible MS. Procedure Details:: B/L SI joint injection under fluoroscopy Informed consent was obtained and the risks and benefits of the procedure was explained to the patient. The patient was taken to the procedure room and placed prone on the procedure table. The patient was prepped using ChloraPrep. The skin and subcutaneous tissues overlying the SI joints were anesthetized using lidocaine. I placed a 22-gauge needle first in the left SI joint and second in the right SI joint. Needle placement was confirmed with dye. After this we injected 5 mL bupivacaine 0.25% and Depo-Medrol 40 mg into each SI joint. Patient tolerated the procedure well with no complication. Plan and Disposition:: We will follow-up with her in 2 weeks. Will reevaluate symptoms at that time.
[2020-11-25 12:05] VITALS: BP 133/66; PULSE 97; RESP 18; O2SAT 97
== END 2020-11-25 12:05 | disposition home or self-care (01) ==
LOC: SC.PAINP 11:24
PROVIDERS: PCP Physician Assistant; Visit Provider Anesthesiology
DX: M46.1 Sacroiliitis, not elsewhere classified (principal); Z86.73 Personal history of transient ischemic attack (TIA), and cerebral infarction without residual deficits; R00.2 Palpitations; I48.91 Unspecified atrial fibrillation; I10 Essential (primary) hypertension; Z86.711 Personal history of pulmonary embolism
CPT/HCPCS: 27096; G0260; J1030; Q9966

== ENCOUNTER 2021-06-29 17:19 | Emergency (ER) | payer OTHER, SELFPAY ==
--- NOTE | 2021-06-29 17:16 | ECG_ITS ---
APPROVED REPORT Exam: Resting ECG HR:86 bpm ECG Measurements Heart Rate 86 AXES AK 128 P 67 QRSd 83 QRS 60 QT 359 T 35 QTc 402 Conclusion SINUS RHYTHM WITH SINUS ARRHYTHMIA NORMAL ECG UNCONFIRMED REPORT Electronically signed by : Porter Arce MD 06/30/2021 19:39:20
[2021-06-29 17:19] VITALS: BP 135/87; PULSE 80; RESP 16; TEMP 36.5; O2SAT 98; BMI 34.9
[2021-06-29 17:25] VITALS: BMI 34.9
--- NOTE | 2021-06-29 17:25 | XR_ITS ---
PROCEDURE INFORMATION: Exam: XR Chest Exam date and time: 06/29/2021 5:36 PM Age: 35 years old Clinical indication: Pain; Chest pressure; Additional info: Chest pain TECHNIQUE: Imaging protocol: XR of the chest. Views: 2 views. COMPARISON: CR XR RIBS RT MIN 3V W CXR1V 04/21/2020 11:25 AM FINDINGS: Lungs: The lungs appear clear. No focal areas of consolidation. Pleural spaces: No pleural effusions or appreciable adenopathy. Negative for pneumothorax. Heart/Mediastinum: Cardiac silhouette and pulmonary vasculature are within range of normal. Bones/joints: There is no evidence of acute fracture. There is a stable minor convex right thoracic scoliosis. IMPRESSION: Negative for an acute cardiopulmonary abnormality. Stable chest radiograph.
[2021-06-29 17:33] LABS: Basophils # 0.1 K/mm3 (0-0.2); Basophils % 1.2 % (0.1-2.0); Eosinophils # 0.1 K/mm3 (0.0-0.4); Hematocrit 40.6 % (37.0-47.0); Hemoglobin 13.2 g/dL (12.2-16.2); Lymphocytes # 1.6 K/mm3 (0.7-4.5); Lymphocytes % 32.3 % (10-50); Mean Corpuscular HGB Conc 32.6 g/dL (31.8-35.4); Mean Corpuscular Hemoglobin 29.4 pg (27.0-31.2); Mean Corpuscular Volume 90.3 fl (81-99); Mean Platelet Volume 8.3 fl (7.4-10.4); Monocytes # 0.3 K/mm3 (0.1-1.0); Neutrophils # 2.9 K/mm3 (1.8-7.8); Neutrophils % 58.6 % (37.0-80.0); Platelet Count 305 K/mm3 (142-424); Red Blood Count 4.49 M/mm3 (4.20-5.40); Red Cell Distribution Width 13.3 % (11.5-17.5); White Blood Count 4.9 K/mm3 (4.8-10.8)
--- NOTE | 2021-06-29 17:40 | PC.NURSE ---
ED MD at
--- NOTE | 2021-06-29 17:47 | PC.NURSE ---
Lab notified of D-Dimer add on
--- NOTE | 2021-06-29 17:49 | PC.NURSE ---
Patient back from radiology; ambulatory with no complications
[2021-06-29 18:00] VITALS: BP 125/78; PULSE 87; RESP 19; O2SAT 96
[2021-06-29 18:03] LABS: Chloride 107 mmol/L (98-107); Sodium 139 mmol/L (136-145)
[2021-06-29 18:04] LABS: Potassium 3.9 mmoL/L (3.5-5.1)
[2021-06-29 18:06] LABS: Anion Gap 10.9 mEq/L (5-15); Blood Urea Nitrogen 6 mg/dl (7-17); Carbon Dioxide 25 mmol/L (22.0-30.0); Creatinine Clearance Estimated 211 mL/min (50-200); Estimated Glomerular Filt Rate 112 ml/min (>60); GFR (African American) 136 ML/MIN (>60)
[2021-06-29 18:07] LABS: Calcium 8.1 mg/dl (8.4-10.2); Glucose 100 mg/dl (74-100)
[2021-06-29 18:26] LABS: Troponin I < 0.01 ng/ml (0.00-0.034)
[2021-06-29 18:30] VITALS: BP 119/73; PULSE 82; RESP 15; O2SAT 95
[2021-06-29 18:53] LABS: D-Dimer 0.64 ug/mL (0.0-0.5)
--- NOTE | 2021-06-29 18:58 | CT_ITS ---
PROCEDURE INFORMATION: Exam: CTA Chest With Contrast Exam date and time: 06/29/2021 7:33 PM Age: 35 years old Clinical indication: Abnormal findings; Abnormal diagnostic tests; Elevated d-dimer; Shortness of breath; Additional info: Chest pain, SOA TECHNIQUE: Imaging protocol: Computed tomographic angiography of the chest with contrast. 3D rendering (Not supervised by radiologist): MIP and/or 3D reconstructed images were created by the technologist. Radiation optimization: All CT scans at this facility use at least one of these dose optimization techniques: automated exposure control; mA and/or kV adjustment per patient size (includes targeted exams where dose is matched to clinical indication); or iterative reconstruction. Contrast material: ISOVUE 370; Contrast volume: 70 ml; Contrast route: INTRAVENOUS (IV); COMPARISON: [facility] CT angio chest 12/01/2017 12:23 AM FINDINGS: Pulmonary arteries: There is no evidence of filling defects within the pulmonary arterial circulation to suggest pulmonary embolism. Aorta: There is no evidence of an aortic aneurysm. There is no evidence of an aortic aneurysm. There is no evidence of aortic dissection, leak, rupture, or other acute vascular pathology. Thyroid: The visualized thyroid gland is normal. Lungs: There are a few punctate pulmonary parenchymal calcifications, consistent with remote granulomatous organism exposure. Pleural spaces: There are no pleural effusions. No pneumothorax. Heart: The heart is not enlarged. There is no evidence of pericardial fluid collections. Lymph nodes: There are a few punctate calcifications in the left hilar region suggesting prior granulomatous disease. No enlarged lymph nodes. Diaphragm: A small hiatal hernia is present. Spleen: The spleen demonstrates punctate calcifications, consistent with remote granulomatous organism exposure. The spleen is at the upper limits of normal in size. Bones/joints: There is a mild convex right thoracic scoliosis. The thoracic spine demonstrates mild degenerative changes at multiple levels. There is no evidence of acute fracture. Soft tissues: No significant soft tissue edema. Other findings: The remainder of the upper visualized abdominal structures are normal. IMPRESSION: 1. Small hiatal hernia. 2. No evidence of pulmonary embolism.
--- NOTE | 2021-06-29 19:28 | PC.NURSE ---
pt to ct
--- NOTE | 2021-06-29 19:52 | PC.NURSE ---
Checked pt condition. No complaints at this time.
--- NOTE | 2021-06-29 20:28 | HMH.EDGENADL ---
ED Disposition Clinical Impression: Hiatal hernia Chest pain Qualifiers: Chest pain type: other chest pain Qualified Code(s): R07.89 - Other chest pain Disposition: Home, Self-Care Condition on Discharge: Good Additional Instructions: Follow-up with your PCP clinic on Saturday for an appointment, they will contact you for an appointment time. Continue home medication as previously directed, avoid strenuous activity. Return ED with new or worsening symptoms. Referrals: Dali Andrew PA [Primary Care Provider] - - Critical Care Critical Care Time: No Attestation: On 06/29/21, the high probability of a clinically significant, sudden or life threatening deterioration of the following system(s) required my full and direct attention, intervention and personal management. The time I documented below is in addition to time spent performing reported procedures but includes the following listed in this critical care notation. Medical Decision Making - Medical Records Medical records reviewed: Yes: I reviewed the patient's medical records. - Luis Felipe Inquiry Pt receiving controlled substance: No Vital Signs: 06/29/21 17:19 06/29/21 18:00 06/29/21 18:30 Temperature 97.7 F Temperature Source Oral Pulse Rate 87 82 Pulse Rate [Right Radial] 80 Respiratory Rate 16 19 15 Blood Pressure 125/78 119/73 Blood Pressure [Right Arm] 135/87 Blood Pressure Mean [Right Arm] 103 Blood Pressure Source [Right Arm] Automatic Cuff Blood Pressure Position [Right Arm] Sitting 02 Sat by Pulse Oximetry 98 96 95 Oxygen Delivery Method Room Air - Lab Data Lab Results 06/29/21 17:25: WBC 4.9, RBC 4.49, Hgb 13.2, Hct 40.6, MCV 90.3, MCH 29.4, MCHC 32.6, RDW 13.3, Plt Count 305, MPV 8.3, Neut % (Auto) 58.6, Lymph % (Auto) 32.3, Terry % (Auto) 6.0, Eos % (Auto) 2.0, Baso % (Auto) 1.2, Neut # (Auto) 2.9, Lymph # (Auto) 1.6, Terry # (Auto) 0.3, Eos # (Auto) 0.1, Baso # (Auto) 0.1 06/29/21 17:25: Sodium 139, Potassium 3.9, Chloride 107, Carbon Dioxide 25, Anion Gap 10.9, BUN 6 L, Creatinine 0.60, Estimated Creat Clear 211, Estimated GFR 112, Est GFR ( Amer) 136, Glucose 100, Calcium 8.1 L, Troponin I < 0.01 06/29/21 17:25: D-Dimer 0.64 H Result diagrams: 06/29/21 17:25 06/29/21 17:25 Orders (Tests/Meds): ED MEDICATIONS Generic Name Dose Route Start Last Admin Trade Name Freq PRN Reason Stop Dose Admin Ondansetron HCl 4 mg 06/29/21 17:43 Ondansetron 4mg Odt SL 07/29/21 17:42 Q6HP PRN Nausea And Vomiting Sodium Chloride 10 ml 06/29/21 17:26 Sodium Chloride 0.9% 10ml Flush Syringe IV 07/29/21 17:25 NEEDED PRN Maintain IV Site Discontinued Medications Generic Name Dose Route Start Last Admin Trade Name Freq PRN Reason Stop Dose Admin Acetaminophen 500 mg 06/29/21 17:43 06/29/21 19:18 Acetaminophen 500mg Tab PO 06/29/21 17:44 Not Given ONCE ONE Ibuprofen 400 mg 06/29/21 17:44 06/29/21 19:18 Ibuprofen 400 Mg Tablet PO 06/29/21 17:45 Not Given ONCE ONE Iopamidol 70 ml 06/29/21 19:45 06/29/21 19:47 Iopamidol-370 (76%);100ml Bottle IV 06/29/21 19:46 70 ml ONCE ONE Administration Sodium Chloride 40 ml 06/29/21 19:45 06/29/21 19:47 0.9% Sodium Chloride 20ml Vial IV 06/29/21 19:46 40 ml ONCE ONE Administration Sodium Chloride 10 ml 06/29/21 19:45 06/29/21 19:47 Sodium Chloride 0.9% 10ml Syr (Rad Only) IV 06/29/21 19:46 10 ml ONCE ONE Administration ORDERS Category Date Time Status Troponin I Q3H Lab 06/29/21 20:30 Ordered Troponin I Q3H Lab 06/29/21 23:30 Ordered - CT Data CT Scan: Chest Time Received: 20:[address] Reviewed: Yes: I have reviewed the patient's CT results, I have viewed the radiologist's interpretation Findings Narrative: IMPRESSION: 1. Small hiatal hernia. 2. No evidence of pulmonary embolism. - ECG Data Tracing #1 EKG normal sinus rhythm with a rate of 86,
[2021-06-29 20:49] VITALS: BP 110/71; PULSE 76; RESP 18; TEMP 36.9; O2SAT 97
== END 2021-06-29 20:51 | disposition home or self-care (01) ==
PROVIDERS: Emergency Provider Emergency Medicine; PCP Physician Assistant
DX: R07.2 Precordial pain (principal); R00.2 Palpitations; R06.02 Shortness of breath; I10 Essential (primary) hypertension; I25.2 Old myocardial infarction; I48.91 Unspecified atrial fibrillation; K44.9 Diaphragmatic hernia without obstruction or gangrene; Z86.718 Personal history of other venous thrombosis and embolism; Z81.8 Family history of other mental and behavioral disorders; Z83.2 Family history of diseases of the blood and blood-forming organs and certain disorders involving the immune mechanism
CPT/HCPCS: 71046; 71275; 80048; 84484; 85025; 85378; 93005; 99285; Q9967

== ENCOUNTER → 2021-07-14 13:42 | Outpatient (CLI) | payer OTHER, SELFPAY ==
--- NOTE | 2021-07-14 13:47 | MM_ITS ---
PROCEDURE INFORMATION: Exam: MG Bilateral Diagnostic Breast Tomosynthesis Exam date and time: 07/14/2021 1:49 PM Age: 35 years old Clinical indication: Right breast palpable lump; upper outer guadrant/axilla TECHNIQUE: Imaging protocol: Bilateral Diagnostic tomosynthesis and 2D mammography including computer-aided detection (CAD) when performed. Unilateral or bilateral exam. COMPARISON: 1. MG MM DIG MAMM BI DX W/CAD 03/16/2019 1:21 PM 2. MG DXRT MM Dig mamm DX unilat RT CAD 02/10/2018 2:04 PM FINDINGS: MAMMOGRAPHY: The breast tissue is composed of scattered areas of fibroglandular density. A skin marker was placed over the palpable abnormality in the posterior third of the right upper outer quadrant. The spot compression views demonstrate normal overlapping fibroglandular structures. There is no stellate mass, architectural distortion or suspicious microcalcifications in either breast to suggest malignancy. No skin thickening or axillary adenopathy. Sonographic evaluation of the right breast is limited, in that, no images were submitted of the peripheral right upper outer quadrant where the patient reports a palpable abnormality. Only periareolar images and axillary images were submitted. No axillary adenopathy. No suspicious findings in the periareolar region. The study is limited by lack of sonographic visualization of the right upper outer quadrant where the patient reports a palpable abnormality. IMPRESSION: Patient to return for repeat right upper outer quadrant ultrasound for full evaluation of the patient's complaint of a palpable abnormality at which time a full radiographic interpretation will be made. ASSESSMENT: BI-RADS Category 0: Incomplete- Need Additional Imaging Evaluation and/or Prior Mammograms for Comparison
--- NOTE | 2021-07-14 13:47 | US_ITS ---
PROCEDURE INFORMATION: Exam: US Right Breast, Complete Exam date and time: 07/14/2021 2:18 PM Age: 35 years old Clinical indication: Mass, lump, or swelling; Right; Additional info: Right breast: Palpable area upper outer quad/axilla TECHNIQUE: Imaging protocol: Complete ultrasound of all four quadrants of the Right breast and the retroareolar regions, including ultrasound of the axilla when performed. COMPARISON: US BREAST RT COMPLETE 03/16/2019 1:54 PM FINDINGS: Breast: High resolution sonography of the RIGHT breast is unremarkable. No discrete mass or fluid collection at the site of palpable area at 11 o'clock position 10 cm from the nipple. Oval lymph nodes nodes with a fatty hilum in RIGHT axilla. IMPRESSION: Normal study. ASSESSMENT: BI-RADS 1: Negative: There is nothing to comment on (likelihood of cancer essentially 0%)
== END ==
PROVIDERS: PCP Physician Assistant; Visit Provider Physician Assistant
DX: N63.10 Unspecified lump in the right breast, unspecified quadrant (principal)
CPT/HCPCS: 76641; 77062; 77066; G0279

== ENCOUNTER 2022-08-23 13:29 | Emergency (ER) | payer OTHER, SELFPAY ==
[2022-08-23 14:05] VITALS: BP 127/77; PULSE 95; RESP 16; TEMP 37.6; O2SAT 100; BMI 32.6
[2022-08-23 14:09] VITALS: BP 125/78; PULSE 68; RESP 18; O2SAT 100; BMI 22.6
[2022-08-23 14:16] LABS: UTC Strep Screen (Rapid) Negative (Negative)
--- NOTE | 2022-08-23 14:50 | EXP.UTC ---
Discharge Plan Disposition Patient Disposition: Home, Self-Care Condition: Good Prescriptions Prescriptions: New cephalexin 500 mg capsule 500 mg PO BID 10 Days Qty: 20 0RF No Action indomethacin 50 mg capsule 50 mg PO BID Qty: 180 0RF Rx Instructions: administer with food or milk, Twice a day for 2 weeks then as needed for pain duloxetine 60 mg capsule,delayed release(DR/EC) 60 mg PO DAILY Qty: 90 1RF Referrals Follow up/Referrals: aDli Andrew PA [Primary Care Provider] - See instructions Activity Restrictions/Add. Instructions Additional Instructions/Restrictions: *Monitor Temp, Over the counter Motrin or Tylenol as directed/as needed Tylenol every 4 hours and Motrin every 6 hours (as long as your family doctor has told you that you can take it) for fever or pain. and straight to ER if unable to lower temp less than 101.0 after medication given *Warm salt water gargles may help to soothe the throat *Throat Lozenges? *Warm fluids like tea with honey may help to soothe the throat? *Sleep elevated *Humidifier/Vaporizer Your throat swab was sent for culture. Those results are typically sent to your primary care. Be sure to follow up in 2-3 days with your family doctor/primary care physician if no improvement so they can review those result and treat if necessary. If you don?t have a primary care doctor, I recommend you get one but in the mean time, you will have to return to a walk in clinic Follow up IMMEDIATELY for new or worsening symptoms or no Noticeable improvement over the next 48-72 hours. 911 for difficulty breathing or swallowing You were tested for today for COVID19 your test result should be back in the next 24-48 hours, you may check your results on the [facility] Clinical Impressions Clinical Impression: Pharyngitis Stand Alone Forms Stand Alone Forms: Work/School Release Instructions Patient Instructions: Sore Throat Discharge ED Provider[place] Funmi Jacob [facility] [place] General Stated complaint: Sore throat, fever, covid test Mode of Arrival: Ambulatory Source of Information: Patient Limitations: No Limitations Time Seen by Provider: 08/23/22 14:50 Description of Symptoms (Recalled from Triage Doc. by RN): pt c/o a sore throat, fever, myalgia, CARTAGENA and n/v ongoing since yesterday. HEENT Symptoms (Recalled from RN notes): Yes Resp Symptoms (Recalled from RN notes): No Skin Symptoms (Recalled from RN notes): No MS Symptoms (Recalled from RN notes): No Functional Status (Recalled from RN notes): wnl History of Present Illness Provider Complaint: Patient states that she started feeling bad yesterday States that she has been having sorethroat, fever, chills, feeling achy all over and headache States that she feels like she may have strep throat her daughter has strep throat right now Related Data Previous Rx's Medication Instructions Recorded duloxetine 60 mg capsule,delayed 60 mg PO DAILY #90 caps 11/28/20 release indomethacin 50 mg capsule 50 mg PO BID NSAID #180 caps 11/28/20 cephalexin 500 mg capsule 500 mg PO BID 10 days #20 caps 08/23/22 Allergies Allergy/AdvReac Type Severity Reaction Status Date / Time No Known Allergies Allergy Verified 08/23/22 14:12 Worker's Comp Is this a Worker's Comp case?: No [facility] Disclaimer: The information contained in this section may have been updated after the patient was seen, as this information can be updated by other users. 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 (Updated 08/23/22 @ 15:02 by Funmi Jacob APRN) Axillary mass Back Pain Blood in stool Social History Smoking Status: Never smoker second hand exposure: No alcohol intake: never substance use type: denies use current occupational status: employed Travel in the last 8 weeks: None household members: family housing: house current occupational exposures/hazards: No caffeine: Yes ROS Obtained: Yes A
[2022-08-23 15:03] VITALS: BP 125/78; PULSE 68; RESP 18; TEMP 37.6
== END 2022-08-23 15:46 | disposition home or self-care (01) ==
PROVIDERS: Emergency Provider Nurse Practitioner; PCP Physician Assistant
DX: J02.9 Acute pharyngitis, unspecified (principal); R50.9 Fever, unspecified; R51.9 Headache, unspecified; Z20.822 Contact with and (suspected) exposure to COVID-19
CPT/HCPCS: 87635; 87880; 99212; 99214; C9803; G0463; U0003; U0005

== ENCOUNTER 2022-11-07 19:22 | Emergency (ER) | payer OTHER, SELFPAY ==
[2022-11-07 19:36] VITALS: BP 126/75; PULSE 82; RESP 16; TEMP 36.6; O2SAT 100; BMI 34.0
--- NOTE | 2022-11-07 19:53 | EXP.UTC ---
Discharge Plan Disposition Patient Disposition: Home, Self-Care Condition: Good Prescriptions Prescriptions: New cephalexin 500 mg capsule 500 mg PO QID Qty: 40 0RF mupirocin 2 % ointment 1 applic topical TID 7 Days Qty: 15 0RF No Action indomethacin 50 mg capsule 50 mg PO BID Qty: 180 0RF Rx Instructions: administer with food or milk, Twice a day for 2 weeks then as needed for pain duloxetine 60 mg capsule,delayed release(DR/EC) 60 mg PO DAILY Qty: 90 1RF cephalexin 500 mg capsule 500 mg PO BID 10 Days Qty: 20 0RF ondansetron 4 mg tablet,disintegrating 4 mg PO Q8H PRN (Reason: nausea and vomiting) Qty: 10 0RF Referrals Follow up/Referrals: Dali Andrew PA [Primary Care Provider] - See instructions Activity Restrictions/Add. Instructions Additional Instructions/Restrictions: Keep the wound clean and dry. Keep a dressing on it if you are going to be getting it dirty. Watch the wound for signs of infection, such as redness, swelling, drainage, fever. etc. Take tylenol or ibuprofen for pain. Follow up with your regular doctor or return here for any problems or concerns. The steri-strips should start to peel off on their own in a few days. Try to let them peel off on their own. GO TO THE ER FOR ANY WORSENING SYMPTOMS OR CONCERNS. Clinical Impressions Clinical Impression: Laceration of forearm, right, Need for Tdap vaccination Instructions Patient Instructions: DI for Laceration Repair-Skin Closure Strips, Tetanus, Diphtheria, Pertussis (Tdap) Vaccine Discharge ED Provider: Miguelito Gaxiola [facility] General Stated complaint: AO 11/07 1800, RT arm lac Mode of Arrival: Ambulatory Source of Information: Patient Limitations: No Limitations Time Seen by Provider: 11/07/22 19:53 HEENT Symptoms (Recalled from RN notes): No Resp Symptoms (Recalled from RN notes): No Skin Symptoms (Recalled from RN notes): Yes MS Symptoms (Recalled from RN notes): No Functional Status (Recalled from RN notes): no History of Present Illness Provider Complaint: 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 She denies any other injuries. Her tetanus immunization is not up to date. Related Data Previous Rx's Medication Instructions Recorded duloxetine 60 mg capsule,delayed 60 mg PO DAILY #90 caps 11/28/20 release indomethacin 50 mg capsule 50 mg PO BID NSAID #180 caps 11/28/20 cephalexin 500 mg capsule 500 mg PO BID 10 days #20 caps 08/23/22 ondansetron 4 mg disintegrating 4 mg PO Q8H PRN nausea and 08/23/22 tablet vomiting #10 tabs cephalexin 500 mg capsule 500 mg PO QID #40 caps 11/07/22 mupirocin 2 % topical ointment 1 applic topical TID 7 days #15 11/07/22 grams Allergies Allergy/AdvReac Type Severity Reaction Status Date / Time No Known Allergies Allergy Verified 08/23/22 14:12 Worker's Comp Is this a Worker's Comp case?: No [facility] Disclaimer: The information contained in this section may have been updated after the patient was seen, as this information can be updated by other users. 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 Axillary mass Back Pain Blood in stool Social History Smoking Status: Never smoker second hand exposure: No alcohol intake: never substance use type: denies use current occupational status: employed Travel in the last 8 weeks: None household members: family housing: house current occupational exposures/hazards: No caffeine: Yes ROS Obtained: Yes All systems reviewed & no additional complaints except as documented Constitutional Constitutional: Denies chills and Denies fever(s) Eyes Eyes: Denies eye discharge ENT Ears, Nose, Mouth, and Throat: Denies dizziness, Denies otalgia and Denies sore throat Cardiovascular Cardiovascular: Denies chest pain Respiratory
[2022-11-07 20:24] VITALS: BP 126/75; PULSE 82; RESP 16; TEMP 36.6; O2SAT 100
== END 2022-11-07 20:27 | disposition home or self-care (01) ==
PROVIDERS: Emergency Provider Nurse Practitioner Family; PCP Physician Assistant
DX: S51.811A Laceration without foreign body of right forearm, initial encounter (principal); Z23 Encounter for immunization; W26.8XXA Contact with other sharp object(s), not elsewhere classified, initial encounter
CPT/HCPCS: 90471; 90715; 96372; 99212; 99214; G0463

== ENCOUNTER 2023-03-31 16:59 | Emergency (ER) | payer OTHER, SELFPAY ==
[2023-03-31 17:15] VITALS: BP 103/55; PULSE 117; RESP 21; TEMP 36.8; O2SAT 97; BMI 35.2
[2023-03-31 17:22] LABS: Apearance,Urine Clear (Clear); Bilirubin,Urine Negative (Negative); Blood, Urine Negative (Negative); Color,Urine Yellow (Yellow); Glucose,Urine (UA) Negative (Negative); Ketones,Urine Negative (Negative); PH,Urine 5.5 (5.0-8.5); Protein,Urine Negative (Negative); Specific Gravity, Urine 1.025 (1.005-1.030); Urobilinogen,Urine 0.2 EU/dl (0.2)
[2023-03-31 17:23] LABS: UTC Leukocyte Esterase,Urine Trace (Negative); UTC Nitrate,Urine Negative (Negative); UTC Pregnancy Test, Urine Negative (Negative)
--- NOTE | 2023-03-31 17:41 | EXP.UTC ---
Discharge Plan Disposition Patient Disposition: Still a Patient Condition: Good Prescriptions Prescriptions: No Action indomethacin 50 mg capsule 50 mg PO BID Qty: 180 0RF Rx Instructions: administer with food or milk, Twice a day for 2 weeks then as needed for pain duloxetine 60 mg capsule,delayed release(DR/EC) 60 mg PO DAILY Qty: 90 1RF Referrals Follow up/Referrals: Dali Andrew PA [Primary Care Provider] - See instructions Discharge ED Provider: Harvinder Lima [facility] [place] General Stated complaint: LT side abd pain Mode of Arrival: Ambulatory Source of Information: Patient Limitations: No Limitations Time Seen by Provider: 03/31/23 17:41 Description of Symptoms (Recalled from Triage Doc. by RN): PATIENT C/O SEVERE PAIN TO LEFT SIDE THAT STARTED APPROX 0630 THIS MORNING. SHE STATES PAIN IS CONSTANT BUT HAS MOMENTS WHEN IT'S WORSE AND FEELS LIKE A LABOR PAIN. SHE ALSO C/O NAUSEA AND REPORTS A NORMAL BOWEL MOVEMENT YESTERDAY. DENIES VOMITING HEENT Symptoms (Recalled from RN notes): No Resp Symptoms (Recalled from RN notes): No Skin Symptoms (Recalled from RN notes): No MS Symptoms (Recalled from RN notes): No Functional Status (Recalled from RN notes): WNL History of Present Illness Provider Complaint: Patient states that she was awoke this morning around 630 am with severe pain in her left lower abdomen and she can almost pinpoint the site where the pain is worse States that the pain is consistent but at times it will grab her and hurt worse than labor pain States that it has continued to hurt throughout the day and this evening after she took a nap and woke up the pain was more consistent States that she went to the bathroom and noticed her urine looked cloudy and had stuff floating in it so she came in to get checked Related Data Previous Rx's Medication Instructions Recorded duloxetine 60 mg capsule,delayed 60 mg PO DAILY #90 caps 11/28/20 release indomethacin 50 mg capsule 50 mg PO BID NSAID #180 caps 11/28/20 Allergies Allergy/AdvReac Type Severity Reaction Status Date / Time No Known Allergies Allergy Verified 08/23/22 14:12 Worker's Comp Is this a Worker's Comp case?: No [facility] Disclaimer: The information contained in this section may have been updated after the patient was seen, as this information can be updated by other users. 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 Axillary mass Back Pain Blood in stool Social History Smoking Status: Never smoker second hand exposure: No alcohol intake: never substance use type: denies use current occupational status: employed Travel in the last 8 weeks: None household members: family housing: house current occupational exposures/hazards: No caffeine: Yes ROS Obtained: Yes All systems reviewed & no additional complaints except as documented and Yes Systems reviewed as appropriate & no additional complaints except as documented Constitutional Constitutional: Reports system reviewed and no additional complaints, except as documented, Reports as per HPI and Denies fever(s) ENT Ears, Nose, Mouth, and Throat: Reports system reviewed and no additional complaints, except as documented and Reports as per HPI Cardiovascular Cardiovascular: Reports system reviewed and no additional complaints, except as documented and Reports as per HPI Respiratory Respiratory: Reports system reviewed and no additional complaints, except as documented and Reports as per HPI Gastrointestinal Gastrointestingal: Reports system reviewed and no additional complaints, except as documented, as per HPI, abdominal pain (left lower ), nausea (when pain hits the worse) and other (reports last BM yesterday and normal); Denies diarrhea or vomiting Genitourinary Female Genitourinary: Reports system reviewed and no additional complaints, except as documented, Reports as
--- NOTE | 2023-03-31 17:49 | PC.NURSE ---
Pt arrived to ED room 11 from [facility]
--- NOTE | 2023-03-31 17:54 | CT_ITS ---
PROCEDURE INFORMATION: Exam: CT Abdomen And Pelvis With Contrast Exam date and time: 03/31/2023 6:16 PM Age: 37 years old Clinical indication: Abdominal pain; Localized; Left lower quadrant (llq); Additional info: Severe llq pain TECHNIQUE: Imaging protocol: Computed tomography of the abdomen and pelvis with contrast. Radiation optimization: All CT scans at this facility use at least one of these dose optimization techniques: automated exposure control; mA and/or kV adjustment per patient size (includes targeted exams where dose is matched to clinical indication); or iterative reconstruction. Contrast material: ISOVUE; Contrast volume: 75 ml; Contrast route: IV; REPORTING DATA: Count of CT and Cardiac NM exams in prior 12 months: This patient has received 0 known CTs and 0 known cardiac nuclear medicine studies in the 12 months prior to the current study. COMPARISON: CT ABDOMEN PELVIS WO CON 05/28/2019 9:55 AM FINDINGS: Liver: Normal. No mass. Gallbladder and bile ducts: Normal. No calcified stones. No ductal dilation. Pancreas: Normal. No ductal dilation. Spleen: Small scattered calcifications. No splenomegaly. Adrenal glands: Normal. No mass. Kidneys and ureters: Normal. No hydronephrosis. Stomach and bowel: Unremarkable. No obstruction. No mucosal thickening. Appendix: No evidence of appendicitis. Intraperitoneal space: Unremarkable. No free air. No significant fluid collection. Vasculature: Unremarkable. No abdominal aortic aneurysm. Lymph nodes: Unremarkable. No enlarged lymph nodes. Urinary bladder: Unremarkable as visualized. Reproductive: Intrauterine device projects centrally within the uterus. 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 Soft tissues: Tiny fat containing umbilical hernia. IMPRESSION: No acute findings.
--- NOTE | 2023-03-31 17:55 | HMH.EDGENADL ---
Discharge Plan Disposition Patient Disposition: Home, Self-Care Condition: Good Prescriptions Prescriptions: No Action indomethacin 50 mg capsule 50 mg PO BID Qty: 180 0RF Rx Instructions: administer with food or milk, Twice a day for 2 weeks then as needed for pain duloxetine 60 mg capsule,delayed release(DR/EC) 60 mg PO DAILY Qty: 90 1RF Referrals Follow up/Referrals: Dali Andrew PA [Primary Care Provider] - See instructions Activity Restrictions/Add. Instructions Additional Instructions/Restrictions: At this time it was felt you are safe to be discharged home. If new or worsening symptoms please do not hesitate to return the emergency department. For pain please take Tylenol and ibuprofen every 6 hours as needed. 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 Clinical Impressions Clinical Impression: Abdominal pain, LLQ Instructions Patient Instructions: DI for Acute Abdominal Pain Discharge ED Provider: Harvinder Lima General Adult HPI General Chief complaint: Abdominal Pain Stated complaint: LT side abd pain Time Seen by Provider: 03/31/23 17:41 Mode of Arrival: Ambulatory Source of Information: Patient Limitations: No Limitations Description of Symptoms (Recalled from ER Triage Doc. by RN): PATIENT C/O SEVERE PAIN TO LEFT SIDE THAT STARTED APPROX 0630 THIS MORNING. SHE STATES PAIN IS CONSTANT BUT HAS MOMENTS WHEN IT'S WORSE AND FEELS LIKE A LABOR PAIN. SHE ALSO C/O NAUSEA AND REPORTS A NORMAL BOWEL MOVEMENT YESTERDAY. DENIES VOMITING History of Present Illness HPI narrative: Patient is a 37-year-old female with past medical history of previous ruptured ovarian cyst who presents emergency department for evaluation of left lower quadrant abdominal pain. Onset was acute, waking her from sleep at 630 this morning, waxes and wanes however has persistent moderate to severe baseline. There is associated nausea without vomiting. Patient denies dysuria, vaginal discharge. She does have a Mirena. No other acute complaints at this time. Related Data Previous Rx's Medication Instructions Recorded duloxetine 60 mg capsule,delayed 60 mg PO DAILY #90 caps 11/28/20 release indomethacin 50 mg capsule 50 mg PO BID NSAID #180 caps 11/28/20 Allergies Allergy/AdvReac Type Severity Reaction Status Date / Time No Known Allergies Allergy Verified 08/23/22 14:12 [facility] Disclaimer: The information contained in this section may have been updated after the patient was seen, as this information can be updated by other users. 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 Axillary mass Back Pain Blood in stool Social History Smoking Status: Never smoker second hand exposure: No alcohol intake: never substance use type: denies use current occupational status: employed Travel in the last 8 weeks: None household members: family housing: house current occupational exposures/hazards: No caffeine: Yes ROS Obtained: Yes Systems reviewed as appropriate & no additional complaints except as documented Physical Exam General General appearance: alert and in no apparent distress Head Head exam: atraumatic and normocephalic Eye Eye exam: Present PERRL and EOMI ENT ENT exam: Present mucous membranes moist Neck Neck exam: Present normal inspection Chest Chest inspection: Present normal inspection and symmetric chest wall rise Respiratory Respiratory exam: Present normal lung sounds bilaterally; Absent respiratory distress Cardiovascular Cardiovascular exam: Present normal rhythm and tachycardia Abdominal Exam Abdominal exam: Present soft and tenderness (Diffuse abdominal tenderness worse in the bilateral lower quadrants.) Extremities Exam Extremities exam: Present normal inspection Neurological Exam Neurological exam: Present alert Psychiatric Psychiatric exam: Present normal aff
[2023-03-31 17:56] VITALS: BP 119/85; PULSE 92; RESP 16; TEMP 36.8; O2SAT 99; BMI 34.2
--- NOTE | 2023-03-31 17:57 | PC.NURSE ---
CALLED LAB SPOKE TO PRASANTH ASKED TO HAVE MICRO ADDED TO UA THAT WAS COLLECTED IN [facility] NOW THAT PT IS IN ER
--- NOTE | 2023-03-31 18:14 | PC.NURSE ---
pt to CT
[2023-03-31 18:26] LABS: Basophils % 0.4 % (0.1-2.0); Eosinophils # 0.2 K/mm3 (0.0-0.4); Eosinophils % 3.2 % (0.1-12.0); Hematocrit 41.4 % (37.0-47.0); Hemoglobin 13.7 g/dL (12.2-16.2); Lymphocytes # 1.8 K/mm3 (0.7-4.5); Lymphocytes % 32.1 % (10-50); Mean Corpuscular Hemoglobin 29.4 pg (27.0-31.2); Mean Corpuscular Volume 89.1 fl (81-99); Mean Platelet Volume 7.8 fl (7.4-10.4); Monocytes # 0.5 K/mm3 (0.1-1.0); Monocytes % 9.2 % (1.7-9.3); Neutrophils # 3.1 K/mm3 (1.8-7.8); Platelet Count 294 K/mm3 (142-424); Red Blood Count 4.65 M/mm3 (4.20-5.40); White Blood Count 5.6 K/mm3 (4.8-10.8)
[2023-03-31 18:33] LABS: HCG Qualitative, Serum Negative (Negative)
[2023-03-31 18:37] LABS: Alanine Aminotransferase 22 U/L (12-78); Alkaline Phosphatase 66 U/L (38-126); Aspartate Amino Transferase 31 U/L (14-36); Bilirubin,Total 0.4 mg/dl (0.2-1.3); Blood Urea Nitrogen 8 mg/dl (7-17); Calcium 8.6 mg/dl (8.4-10.2); Carbon Dioxide 29 mmol/L (22.0-30.0); Chloride 104 mmol/L (98-107); Creatinine Clearance Estimated 179 mL/min (50-200); Estimated Glomerular Filt Rate 93 ml/min (>60); GFR (African American) 113 ML/MIN (>60); Glucose 92 mg/dl (74-100)
[2023-03-31 18:38] LABS: Albumin Level 4.1 g/dl (3.5-5.0); Albumin/Globulin Ratio 1.3 (1.1-1.8); Globulin 3.2 g/dL (1.3-3.2); Lipase 66 U/L (23-300); Sodium 135 mmol/L (136-145); Total Protein,Serum 7.3 g/dl (6.3-8.2)
--- NOTE | 2023-03-31 19:12 | PC.NURSE ---
Rounded on patient; call light within reach of patient
[2023-03-31 19:31] VITALS: BP 114/75; PULSE 70; O2SAT 97
--- NOTE | 2023-03-31 19:40 | US_ITS ---
PROCEDURE INFORMATION: Exam: US Pelvis, Transvaginal Exam date and time: 03/31/2023 8:11 PM Age: 37 years old Clinical indication: Pelvic pain; Additional info: L torsion ruleout TECHNIQUE: Imaging protocol: Real-time transvaginal pelvic ultrasound with image documentation. Transvaginal imaging was used for better evaluation of the endometrium, adnexa, and/or cervix. COMPARISON: CT ABDOMEN PELVIS W CON 03/31/2023 6:16 PM FINDINGS: Uterus: Uterus is normal. Endometrial stripe is normal in thickness. Appropriately positioned intrauterine device within the endometrial cavity. Cervix: Minimal endocervical fluid. Right ovary/adnexa: Normal. No mass. Normal ovarian blood flow. Left ovary/adnexa: Normal. No mass. Normal ovarian blood flow. Intraperitoneal space: No free fluid. IMPRESSION: 1. No acute findings. No evidence ovarian torsion. 2. Appropriately positioned IUD.
--- NOTE | 2023-03-31 19:41 | PC.NURSE ---
US called in for R/O ovarian torsion
[2023-03-31 20:00] VITALS: BP 107/79; PULSE 74; RESP 16; O2SAT 96
--- NOTE | 2023-03-31 20:10 | PC.NURSE ---
Pt to US
[2023-03-31 21:00] VITALS: BP 126/83; PULSE 74; RESP 16; O2SAT 100
--- NOTE | 2023-03-31 21:06 | PC.NURSE ---
OB has been paged
--- NOTE | 2023-03-31 21:07 | PC.NURSE ---
on the phone with
[2023-03-31 21:13] VITALS: BP 126/83; PULSE 74; RESP 16; TEMP 36.8; O2SAT 98
== END 2023-03-31 21:15 | disposition home or self-care (01) ==
LOC: UTC 17:47 → ER 17:48
PROVIDERS: Nurse Practitioner; Emergency Provider Emergency Medicine; PCP Physician Assistant
DX: R10.32 Left lower quadrant pain (principal); R11.0 Nausea
CPT/HCPCS: 74177; 76830; 80053; 81003; 81025; 83690; 84703; 85025; 96361; 96374; 96375; 99285; J2405; Q9967

== ENCOUNTER 2023-06-21 15:15 | Emergency (ER) | payer OTHER, SELFPAY ==
[2023-06-21 15:25] VITALS: BP 133/85; PULSE 92; RESP 23; TEMP 37.3; O2SAT 98; BMI 36.1
--- NOTE | 2023-06-21 15:34 | XR_ITS ---
FINAL REPORT CLINICAL HISTORY: cough, soa COMPARISON: 06/29/2021 FINDINGS: Two views of the chest were obtained. The heart size and pulmonary vascularity are within normal limits. The mediastinum is normal. No acute pulmonary abnormality is identified. There is no pneumothorax. The bony thorax is intact. IMPRESSION: No active cardiopulmonary disease. Reviewed, Interpreted and Dictated by Godwin Alvarez III, MD Transcribed by Yudi Heath Authenticated and [facility]
--- NOTE | 2023-06-21 15:34 | ED_ITS ---
Discharge Plan Disposition Patient Disposition: Home, Self-Care Condition: Good Prescriptions Prescriptions: New azithromycin [Zithromax Z-Onel] 250 mg tablet See Rx Instructions .ROUTE .COMPLEX 5 Days Qty: 6 0RF Rx Instructions: For 250 mg dose pack: take 500 mg today (day 1), then 250 mg for 4 days (days 2-5) benzonatate 100 mg capsule 100 mg PO TID PRN (Reason: cough) Qty: 30 0RF methylprednisolone [Medrol (Onel)] 4 mg tablets,dose pack See Rx Instructions .Route .COMPLEX 6 Days Qty: 21 0RF Rx Instructions: taper pack; albuterol sulfate [Proventil HFA] 90 mcg/actuation HFA aerosol inhaler 1 - 2 puff inhalation QID PRN (Reason: shortness of breath or wheezing) Qty: 8.5 0RF No Action indomethacin 50 mg capsule 50 mg PO BID Qty: 180 0RF Rx Instructions: administer with food or milk, Twice a day for 2 weeks then as needed for pain duloxetine 60 mg capsule,delayed release(DR/EC) 60 mg PO DAILY Qty: 90 1RF Referrals Follow up/Referrals: Dali Andrew PA [Primary Care Provider] - See instructions Activity Restrictions/Add. Instructions Additional Instructions/Restrictions: * Start antibiotic today. Be sure to complete entire prescription even if feeling better * Monitor temp. Tylenol every 4 hours as needed and / or ibuprofen every 6 hours as needed ( As long as your primary care physician has told you that it ok to take both. For fever/aches/pains ER if no less than 101 despite Tylenol or Motrin * Humidifier/vaporizer or hot steamy shower * Inhaler every 4-6 hours as needed like we discussed. If unsure how to use it, ask pharmacist to demonstrate how. Should help open airways and improve cough, wheezing, and shortness of breath * *Tessalon Perles will not cause drowsiness but use at bedtime to help stop cough so that you may get some rest. *Start steroid today. Helps with inflammation therefore, cough and wheezing. Follow directions on the package. Reviewed side effects. Patient reports taking them before. Follow up IMMEDIATELY for new or worsening of symptoms OR no noticeable improvement over the next 48-72 hours. 911 immediately for any life threatening symptoms such as chest pain or difficulty breathing Clinical Impressions Clinical Impression: Acute bronchitis Instructions Patient Instructions: Cough, Albuterol Oral Inhalation Discharge ED Provider: Funmi Jacob [facility] [place] General Stated complaint: SOA Mode of Arrival: Ambulatory Source of Information: Patient Limitations: No Limitations Time Seen by Provider: 06/21/23 15:34 Description of Symptoms (Recalled from Triage Doc. by RN): PATIENT C/O COUGH, SOA (FEELS LIKE SHE CAN'T TAKE A DEEP BREATH), AND LUNG/CHEST TIGHTNESS X 2 WEEKS HEENT Symptoms (Recalled from RN notes): No Resp Symptoms (Recalled from RN notes): Yes Skin Symptoms (Recalled from RN notes): No MS Symptoms (Recalled from RN notes): No Functional Status (Recalled from RN notes): WNL History of Present Illness Provider Complaint: Patient states that she has been having a non-productive cough that when it starts makes her feel SOA at times and feels like her lungs are tight and she cannot get a deep breath in at times with tickling feeling in the back of her throat that starts her coughing States it has been keeping her up at night States that she is not coughing anything up and feels like it did at times when she had pleurisy States that she is out of her inhaler that helps so she came in Related Data Previous Rx's Medication Instructions Recorded duloxetine 60 mg capsule,delayed 60 mg PO DAILY #90 caps 11/28/20 release indomethacin 50 mg capsule 50 mg PO BID NSAID #180 caps 11/28/20 albuterol sulfate 90 mcg/actuation 1 - 2 puff inhalation QID PRN 06/21/23 aerosol inhaler (Proventil HFA) shortness of breath or wheezing #8.5 grams azithromycin 250 mg tablet See Rx Instructions PO .COMPLEX 5 06/21/23 (Zithromax Z-Onel) days #6 tabs benzonatate 100 mg capsule 100 mg PO TID PRN cough #30 caps 06/21/23 methylprednisolone 4 mg tablets in See Rx Instructions .Route 06/21/23 a dose pack (Medrol (Onel)) .COMPLEX 6 days #21 tabs Allergies Allergy/AdvReac Type Severity Reaction Status Date / Time No Known Allergies Allergy Verified 08/23/22 14:12 Worker's Comp Is this a Worker's Comp case?: No [facility] Disclaimer: The information contained in this section may have been updated after the patient was seen, as this information can be updated by other users. 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 Axillary mass Back Pain Blood in stool Social History Smoking Status: Never smoker second hand exposure: No alcohol intake: never substance use type: denies use current occupational status: employed Travel in the last 8 weeks: None household members: family housing: house current occupational exposures/hazards: No caffeine: Yes ROS Obtained: Yes All systems reviewed & no additional complaints except as documented and Yes Systems reviewed as appropriate & no additional complaints except as documented Constitutional Constitutional: Reports system reviewed and no additional complaints, except as documented and Reports as per HPI ENT Ears, Nose, Mouth, and Throat: Reports system reviewed and no additional complaints, except as documented and Reports as per HPI Cardiovascular Cardiovascular: Reports system reviewed and no additional complaints, except as documented, Reports as per HPI and Denies dyspnea Respiratory Respiratory: Reports system reviewed and no additional complaints, except as documented, Reports as per HPI, Reports shortness of breath, Reports chest congestion, Reports cough, Denies dyspnea, Denies hemoptysis, Denies pain on inspiration, Denies pain with cough, Denies stridor and Denies wheezing Allergic/Immunologic Allergic/Immunologic: Denies wheezing Physical Exam General General appearance: alert and in no apparent distress ENT ENT exam: Present mucous membranes moist Respiratory Respiratory exam: Present normal lung sounds bilaterally; Absent respiratory distress or wheezes Cardiovascular Cardiovascular exam: Present regular rate, normal rhythm and normal heart sounds Neurological Exam Neurological exam: Present alert, oriented X3 and normal gait Medical Decision Making Luis Felipe Inquiry Pt receiving controlled substance: No Luis Felipe was queried for this patient: No Vital Signs: 06/21/23 15:25 Temperature 99.1 F Temperature Source Oral Pulse Rate [Left Brachial] 92 H Respiratory Rate 23 Blood Pressure [Left Arm] 133/85 Blood Pressure Mean [Left Arm] 101 Blood Pressure Source [Left Arm] Automatic Cuff Blood Pressure Position [Left Arm] Sitting 02 Sat by Pulse Oximetry 98 Oxygen Delivery Method Room Air Radiology Data #1: Image(s): Chest Image Reviewed: Yes I have reviewed radiologist's interpretation no acute pulmonary process
[2023-06-21 16:46] VITALS: BP 133/85; PULSE 92; RESP 23; TEMP 37.3; O2SAT 98
== END 2023-06-21 16:49 | disposition home or self-care (01) ==
PROVIDERS: Emergency Provider Nurse Practitioner; PCP Physician Assistant
DX: J20.9 Acute bronchitis, unspecified (principal); R05.9 Cough, unspecified; R06.02 Shortness of breath
CPT/HCPCS: 71046; 99212; 99214; G0463

== ENCOUNTER 2024-03-04 09:52 | Outpatient (CLI) | payer OTHER, SELFPAY ==
--- NOTE | 2024-03-04 09:56 | MM_ITS ---
PROCEDURE INFORMATION: Exam: MG Bilateral Screening 3D Mammography Exam date and time: 03/04/2024 10:33 AM Age: 38 years old Clinical indication: Screening examination TECHNIQUE: Imaging protocol: Bilateral Screening tomosynthesis and 2D mammography including computer-aided detection (CAD) when performed. COMPARISON: 1. MG MM DIG MAMM BI DX W/CAD 07/14/2021 1:49 PM 2. MG MM DIG MAMM BI DX W/CAD 03/16/2019 1:21 PM FINDINGS: MAMMOGRAPHY: Breast composition: There are scattered areas of fibroglandular density. Mass: None. Architectural distortion: None. Calcifications: No suspicious calcifications. Asymmetric density: None. Skin thickening: None. Axillary adenopathy: None. IMPRESSION: No mammographic evidence of malignancy. Annual screening is recommended unless otherwise clinically indicated. ASSESSMENT: BI-RADS Category 1: Negative.
--- NOTE | 2024-03-04 09:56 | CT_ITS ---
FINAL REPORT TECHNIQUE: Axial imaging of the chest is obtained after the administration of contrast. 3-D MIP reformatted images were also obtained and reviewed per PE protocol. CLINICAL HISTORY: soa COMPARISON: CT chest from earlier same day FINDINGS: The pulmonary arteries are well filled. There is no evidence of pulmonary embolus. There is no aortic dissection. Heart size is normal. There is no mediastinal, hilar, or axillary lymphadenopathy as stated on exam performed earlier today. There is no acute pulmonary abnormality. There is no pleural or pericardial effusion. Limited evaluation of the upper abdomen is without acute abnormality. No acute osseous abnormality. IMPRESSION: No evidence of pulmonary embolism or aortic dissection. Otherwise, no acute pulmonary abnormality. No change from earlier today. Reviewed, Interpreted and Dictated by Malu Mendoza MD Transcribed by Gianna Luciano Authenticated and [facility]
--- NOTE | 2024-03-04 10:16 | CT_ITS ---
FINAL REPORT TECHNIQUE: Thin section axial images were obtained from the lung apices through the upper abdomen without contrast. Coronal and sagittal reconstructions were obtained and reviewed. This study was performed with techniques to keep radiation doses as low as reasonably achievable (ALARA). Individualized dose reduction techniques using automated exposure control or adjustment of mA and/or kV according to the patient's size were employed. CLINICAL HISTORY: Shortness of breath COMPARISON: CTA chest 06/29/2021 FINDINGS: There is no mediastinal, hilar, or axillary lymphadenopathy. No pleural or pericardial effusion. The lungs are clear. No suspicious nodules or masses. No consolidations. Limited, unenhanced evaluation of the upper abdomen is without acute abnormality. There is a stable small hiatal hernia. There is no acute osseous abnormality. IMPRESSION: No acute intrathoracic abnormality. Reviewed, Interpreted and Dictated by Malu Mendoza MD Transcribed by Heather Bhakta Authenticated and . [facility]
[2024-03-04] MEDS: 0.9 % SODIUM CHLORIDE 50 ML VIAL IV (10:46)
[2024-03-04] MEDS: SODIUM CHLORIDE 0.9% 10ML SYR (RAD ONLY) 10 ML IV (10:47)
[2024-03-04] MEDS: IOPAMIDOL-370 (76%);100ML BOTTLE 100 ML IV (10:47)
== END 2024-03-04 23:59 | disposition home or self-care (01) ==
LOC: RAD 09:53
PROVIDERS: PCP Physician Assistant; Visit Provider Physician Assistant
DX: Z12.31 Encounter for screening mammogram for malignant neoplasm of breast (principal); R06.00 Dyspnea, unspecified
CPT/HCPCS: 71250; 71275; 77063; 77067; Q9967

== ENCOUNTER 2024-05-04 17:55 | Outpatient (CLI) | payer OTHER, SELFPAY ==
--- NOTE | 2024-05-04 | XR_ITS ---
PROCEDURE INFORMATION: Exam: XR Left Ankle Exam date and time: 05/04/2024 6:17 PM Age: 38 years old Clinical indication: Pain; Ankle; Left; Additional info: Left ankle pain TECHNIQUE: Imaging protocol: Radiologic exam of the left ankle. Views: 3 or more views. COMPARISON: No relevant prior studies available. FINDINGS: Bones/joints: There is no evidence of acute fracture.There is no evidence of malalignment or dislocation. Well corticated ossific fragment distal to the fibula consistent with chronic unhealed avulsion fracture. Soft tissues: Normal. IMPRESSION: 1. There is no evidence of acute fracture.There is no evidence of malalignment or dislocation. 2. Well corticated ossific fragment distal to the fibula consistent with chronic unhealed avulsion fracture.
== END 2024-05-04 23:59 | disposition home or self-care (01) ==
PROVIDERS: PCP Physician Assistant; Visit Provider Physician Assistant
DX: M25.572 Pain in left ankle and joints of left foot (principal)
CPT/HCPCS: 73610

== ENCOUNTER 2024-08-12 15:59 | Emergency (ER) | payer OTHER, SELFPAY ==
--- NOTE | 2024-08-12 16:08 | ECG_ITS ---
APPROVED REPORT Exam: Resting ECG HR:95 bpm ECG Measurements Heart Rate 95 AXES AZ 150 P 57 QRSd 85 QRS 23 QT 345 T 19 QTc 397 Conclusion SINUS RHYTHM NORMAL ECG UNCONFIRMED REPORT Electronically signed by : Miguelito Marrero, 08/12/2024 23:08:37
[2024-08-12 16:09] VITALS: BP 122/79; PULSE 102; RESP 18; TEMP 37.1; O2SAT 100; BMI 35.9
--- NOTE | 2024-08-12 16:19 | CT_ITS ---
PROCEDURE INFORMATION: Exam: CTA Chest With Contrast Exam date and time: 08/12/2024 5:05 PM Age: 39 years old Clinical indication: Shortness of breath; Additional info: SOA, HX pe TECHNIQUE: Imaging protocol: Computed tomographic angiography of the chest with contrast. Exam focused on the arteries. 3D rendering (Not supervised by radiologist): MIP and/or 3D reconstructed images were created by the technologist. Radiation optimization: All CT scans at this facility use at least one of these dose optimization techniques: automated exposure control; mA and/or kV adjustment per patient size (includes targeted exams where dose is matched to clinical indication); or iterative reconstruction. Contrast material: ISOVUE 370; Contrast volume: 70 ml; Contrast route: INTRAVENOUS (IV); COMPARISON: CT ANGIO CHEST 03/04/2024 10:16 AM FINDINGS: Pulmonary arteries: No evidence of pulmonary embolism. Aorta: No aortic aneurysm. Lungs: No evidence of focal airspace infiltrate or congestive pulmonary edema. Pleural spaces: No pneumothorax. No pleural effusion. Heart: No cardiomegaly. No pericardial effusion. Lymph nodes: Unremarkable. Bones/joints: No acute osseous abnormality. Soft tissues: Unremarkable. IMPRESSION: No evidence of pulmonary embolism or other acute process in the chest.
[2024-08-12] MEDS: KETOROLAC 30MG/ML VIAL 15 MG IV (16:27)
--- NOTE | 2024-08-12 16:27 | ED_ITS ---
<Statement entered by Bernard Marrero MD - 08/12/24 21:49> I was consulted by the TRAM, and we discussed the complexity of the problems being addressed. I approved the treatment and management plan for this patient's care in the emergency department, thus performing a substantive portion of the medical decision making. Bernard Marrero MD, DEVEN, FACEP Discharge Plan Disposition Patient Disposition: Home, Self-Care Prescriptions Prescriptions: New prednisone 20 mg tablet 20 mg PO BID Qty: 10 0RF albuterol sulfate 90 mcg/actuation HFA aerosol inhaler 1 inh inhalation QID PRN (Reason: shortness of breath or wheezing) Qty: 8.5 0RF No Action fluticasone propionate [Flonase Allergy Relief] 50 mcg/actuation spray,suspension 1 spray intranasal DAILY Qty: 10 1RF Rx Instructions: administer into each nostril cetirizine [Zyrtec] 10 mg tablet 10 mg PO DAILY Qty: 90 3RF Stahist AD 25-60 mg tablet PO Patient Comments: TAKE 1 TABLET BY MOUTH EVERY 8 HOURS FOR NASAL CONGESTION/RUNNY NOSE amoxicillin-pot clavulanate 875-125 mg tablet PO Patient Comments: TAKE 1 TABLET BY MOUTH TWICE DAILY Referrals Follow up/Referrals: Dali Andrew PA [Primary Care Provider] - See instructions Activity Restrictions/Add. Instructions Additional Instructions/Restrictions: Tylenol and ibuprofen as needed for pain or fever Humidifier/vaporizer/hot steamy shower Follow-up with primary care tomorrow. Follow-up immediately in the ER for new or worsening symptoms or no noticeable improvement over the next 48-72 hours. Stop smoking Inhaler every 4-6 hours as needed. Should help open airways improved cough, wheezing, shortness of breath Start steroids today. Helps with inflammation therefore coughing and wheezing. Follow directions on package. Clinical Impressions Clinical Impression: Acute bronchitis Qualifiers: Bronchitis organism: unspecified organism Qualified Code(s): J20.9 - Acute bronchitis, unspecified Instructions Patient Instructions: DI for Acute Bronchitis Print Language Print Language: [place] Discharge ED Provider: Bernard Marrero [facility] General Chief Complaint: Shortness of Breath/Dyspnea Stated Complaint: left lung pain ,SOA Time Seen by Provider: 08/12/24 16:05 Mode of Arrival: Ambulatory Source of Information: Patient Description of Symptoms (Recalled from ER Triage Doc. by RN): patient states she has had a nonproductive cough for 2 weeks with left lung pain and shortness of breath radiating under her left collar bone. history of PE History of Present Illness HPI narrative: 39-year-old female presents for nonproductive cough for 2 weeks and left lung pain with shortness of breath. Patient states history of bilateral PE patient states she was on a blood thinner but it was discontinued. Patient states she was told she had a clotting factor but she is not on blood thinner because she was told she did not need one. Related Data Home Medications ?Medication ?Instructions ?Recorded ?Confirmed amoxicillin 875 mg-potassium tab PO 12/02/23 12/02/23 clavulanate 125 mg tablet chlorcyclizine-pseudoephedrine 25 tab PO 12/02/23 12/02/23 mg-60 mg tablet (Stahist AD) Previous Rx's ?Medication ?Instructions ?Recorded cetirizine 10 mg tablet (Zyrtec) 10 mg PO DAILY #90 tabs 08/14/23 fluticasone propionate 50 1 spray intranasal DAILY #10 mL 08/14/23 mcg/actuation nasal spray,suspension (Flonase Allergy Relief) albuterol sulfate 90 mcg/actuation 1 inh inhalation QID PRN shortness 08/12/24 aerosol inhaler of breath or wheezing #8.5 grams prednisone 20 mg tablet 20 mg PO BID #10 tabs 08/12/24 Allergies Allergy/AdvReac Type Severity Reaction Status Date / Time No Known Allergies Allergy Verified 12/02/23 13:37 [facility] Disclaimer: The information contained in this section may have been updated after the patient was seen, as this information can be updated by other users. 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) Chest pain Abscessed tooth Tooth pain Acute bronchitis Insect bite Laceration of forearm, right Exposure to COVID-19 virus Lumbar radiculopathy Absent sense of smell Low back strain History of pulmonary embolus (PE) Superficial bruising of back Abdominal pain, LLQ Need for Tdap vaccination Pharyngitis Hiatal hernia Axillary mass Blood in stool Back Pain Surgical History , DANCE THERAPIST) No significant past surgical history Family History , DANCE THERAPIST) No significant family history Social History , DANCE THERAPIST) Smoking Status: Never smoker second hand exposure: No alcohol intake: never substance use type: denies use current occupational status: employed Travel in the last 8 weeks?: None household members: family housing: house current occupational exposures/hazards: No caffeine: Yes Have you lived/traveled outside [place] in past 30 days?: No Contact w/someone who lives/traveled outside US past 30 days?: No Exposure to someone with infectious disease in past 14 days?: No Do you have a fever (greater than 100.4 F or 38 C)?: No Have you tested positive for COVID-19?: No Exposed to someone with COVID-19 in past 14 days?: No Do you have a sore throat?: No Do you have a cough?: No Do you have any weakness?: No Do you have any diarrhea?: No Are you experiencing any unusual bleeding?: No Do you have any muscle aches/pain?: No Do you have any abdominal pain?: No Are you experiencing loss of taste or smell?: No Other 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 Have you received the Flu Vaccine for this season: No Have you received the Pneumonia Vaccine: No ROS Obtained: Yes Systems reviewed as appropriate & no additional complaints except as documented Physical Exam General General appearance: alert and in no apparent distress Respiratory Respiratory exam: Present wheezes Cardiovascular Cardiovascular exam: Present regular rate and normal rhythm Abdominal Exam Abdominal exam: Present soft and normal bowel sounds; Absent tenderness Neurological Exam Neurological exam: Present alert and oriented X3 Skin Skin exam: Present warm HEART Score HEART Score HEART Score assessment performed?: Yes History (anamnesis): Slightly suspicious ECG: Normal Age: <45 years Risk factors: No known risk factors Troponin: </= normal limit HEART Score: 0 Critical Care Critical Care Time Critical Care Time: No Medical Decision Making Medical Records Medical records reviewed: Yes I reviewed the patient's medical records. Luis Felipe Inquiry Pt receiving controlled substance: No Luis Felipe was queried for this patient: No Vital Signs Vital Signs: 08/12/24 16:09 08/12/24 16:30 08/12/24 17:30 Temperature 98.7 F Temperature Source Oral Pulse Rate 106 H 97 H Pulse Rate [Right Radial] 102 H Respiratory Rate 18 Blood Pressure 118/79 113/78 Blood Pressure [Right Arm] 122/79 Blood Pressure Mean 87 Blood Pressure Mean [Right Arm] 93 Blood Pressure Source [Right Arm] Automatic Cuff Blood Pressure Position [Right Arm] Sitting 02 Sat by Pulse Oximetry 100 100 99 Oxygen Delivery Method Room Air Room Air Lab Data Lab results reviewed: Yes I reviewed the patient's lab results. Labs: Lab Results 08/12/24 16:20: WBC 9.0, RBC 4.62, Hgb 13.1, Hct 39.9, MCV 86.4, MCH 28.4, MCHC 32.8, RDW 12.7, Plt Count 311, MPV 9.9, Neut % (Auto) 73.0, Lymph % (Auto) 19.2, Island % (Auto) 5.2, Eos % (Auto) 2.1, Baso % (Auto) 0.3, Neut # (Auto) 6.5, Lymph # (Auto) 1.7, Island # (Auto) 0.5, Eos # (Auto) 0.2, Baso # (Auto) 0.0, Sodium 137, Potassium 3.5, Chloride 108 H, Carbon Dioxide 20 L, Anion Gap 12.5, BUN 6 L , Creatinine 0.60, Estimated Creat Clear 209, Estimated GFR 110, Est GFR ( Amer) 133, Glucose 140 H, Calcium 9.0, Total Bilirubin 0.2, AST 30, ALT 31, Alkaline Phosphatase 55, Troponin I < 0.01, NT-Pro-B Natriuret Pep 211 H, Total Protein 7.2, Albumin 4.3, Globulin 2.9, Albumin/Globulin Ratio 1.5, HCV Ab BRE w/Rflx PCR Qn Negative, HIV Ag/Ab Combo Qual Negative 08/12/24 16:20 08/12/24 16:20 Response Orders (Tests/Meds): ED MEDICATIONS Discontinued Medications Generic Name Dose Route Start Last Admin Trade Name Freq PRN Reason Stop Dose Admin Sodium Chloride 1,000 mls @ 999 mls/hr 08/12/24 16:21 08/12/24 16:28 Sod Chlor 0.9% 1000ml Bag IV 08/12/24 17:21 999 mls/hr .Q1H1M ONE Administration Iopamidol 70 ml 08/12/24 17:12 08/12/24 17:14 Iopamidol-370 (76%);100ml Bottle IV 08/12/24 17:13 70 ml ONCE ONE Administration Ketorolac Tromethamine 15 mg 08/12/24 16:19 08/12/24 16:27 Ketorolac 30mg/Ml Vial IV 08/12/24 16:20 15 mg ONCE ONE Administration Sodium Chloride 50 ml 08/12/24 17:12 08/12/24 17:14 0.9 % Sodium Chloride 50 Ml Vial IV 08/12/24 17:13 50 ml ONCE ONE Administration Sodium Chloride 10 ml 08/12/24 17:12 08/12/24 17:14 Sodium Chloride 0.9% 10ml Syr (Rad Only) IV 08/12/24 17:13 10 ml ONCE ONE Administration ORDERS Category Date Time Status CT angio chest PE protocol Stat Cat Scan 08/12/24 16:19 Completed BNP [NT Pro Brain Natriuretic Pep.] Stat Lab 08/12/24 16:20 Completed CBC w/Auto Diff [Complete Blood Count Auto Diff] Stat Lab 08/12/24 16:20 Completed CMP [Comprehensive Metabolic Panel] Stat Lab 08/12/24 16:20 Completed HIV Combo Stat Lab 08/12/24 16:20 Completed Hepatitis C Ab Qual. W/ RFX Stat Lab 08/12/24 16:20 Completed Trop I [Troponin I] Stat Lab 08/12/24 16:[address] Scan: Chest Time Received: 17:[address] Reviewed: Yes I have reviewed the patient's CT results Preliminary Findings: Normal/NAD US Data ED US Reviewed: Yes I have reviewed the patient's US results MDM Narrative Medical Decision Narrative: In summary patient is a 39-year-old female who presents to the emergency department for evaluation of left lung pain and shortness of breath with nonproductive cough for 2 weeks. Patient is hemodynamically stable upon arrival, afebrile. Wheezing noted on physical exam. Differential diagnosis includes bronchitis, pneumonia, PE. Initial workup will be conducted with labs, CT. Initial inventions include fluids,. Initial workup reviewed by me CT negative labs unremarkable. Upon repeat evaluation patient resting comfortably vital signs stable. Given this appropriate for discharge at time will discharge home with a prescription for albuterol inhaler and steroids. Patient advised to follow-up with hematology.
[2024-08-12] MEDS: 0.9 % SODIUM CHLORIDE 1000ML 1,000 ML 999 ML IV (16:28)
[2024-08-12 16:30] VITALS: BP 118/79; PULSE 106; O2SAT 100
[2024-08-12 16:34] LABS: Basophils % 0.3 % (0.1-2.0); Eosinophils # 0.2 Kmm3 (0.0-0.4); Eosinophils % 2.1 % (0.1-12.0); Hematocrit 39.9 % (37.0-47.0); Hemoglobin 13.1 g/dL (12.2-16.2); Immature Granulocytes # 0.02 10^3uL; Immature Granulocytes % 0.2 %; Lymphocytes # 1.7 K/mm3 (0.7-4.5); Lymphocytes % 19.2 % (10-50); Mean Corpuscular HGB Conc 32.8 g/dL (31.8-35.4); Mean Corpuscular Hemoglobin 28.4 pg (27.0-31.2); Mean Corpuscular Volume 86.4 fl (81-99); Mean Platelet Volume 9.9 fl (7.4-10.4); Monocytes # 0.5 K/mm3 (0.1-1.0); Monocytes % 5.2 % (1.7-9.3); Neutrophils # 6.5 K/mm3 (1.8-7.8); Nucleated Red Blood Cells # 0 10^3/uL; Nucleated Red Blood Cells % 0 %; Platelet Count 311 K/mm3 (142-424); Red Blood Count 4.62 M/mm3 (4.20-5.40); Red Cell Distribution Width 12.7 % (11.5-17.5); Red Cell Distribution Width-SD 40.1 fL
[2024-08-12 16:45] LABS: Chloride 108 mmol/L (98-107)
[2024-08-12 16:46] LABS: Albumin Level 4.3 g/dl (3.5-5.0); Potassium 3.5 mmoL/L (3.5-5.1); Sodium 137 mmol/L (136-145)
[2024-08-12 16:48] LABS: Blood Urea Nitrogen 6 mg/dl (7-17); Creatinine Clearance Estimated 209 mL/min (50-200); Estimated Glomerular Filt Rate 110 ml/min (>60); GFR (African American) 133 ML/MIN (>60)
[2024-08-12 16:49] LABS: Alanine Aminotransferase 31 U/L (12-78); Albumin/Globulin Ratio 1.5 (1.1-1.8); Alkaline Phosphatase 55 U/L (38-126); Anion Gap 12.5 mEq/L (5-15); Aspartate Amino Transferase 30 U/L (14-36); Bilirubin,Total 0.2 mg/dl (0.2-1.3); Carbon Dioxide 20 mmol/L (22.0-30.0); Globulin 2.9 g/dL (1.3-3.2); Glucose 140 mg/dl (74-100); Total Protein,Serum 7.2 g/dl (6.3-8.2)
[2024-08-12 16:58] LABS: NT Pro Brain Natriuretic Pep. 211 pg/mL (0-125)
[2024-08-12] MEDS: SODIUM CHLORIDE 0.9% 10ML SYR (RAD ONLY) 10 ML IV (17:14)
[2024-08-12] MEDS: 0.9 % SODIUM CHLORIDE 50 ML VIAL IV (17:14)
[2024-08-12] MEDS: IOPAMIDOL-370 (76%);100ML BOTTLE 70 ML IV (17:14)
[2024-08-12 17:18] LABS: Troponin I < 0.01 ng/ml (0.00-0.034)
[2024-08-12 17:30] VITALS: BP 113/78; PULSE 97; O2SAT 99
[2024-08-12 17:42] LABS: HIV Combo NEGATIVE (Negative)
[2024-08-12 17:50] LABS: Hepatitis C Ab Qual. W/ RFX NEGATIVE (Negative)
[2024-08-12 18:24] VITALS: BP 110/74; PULSE 99; RESP 16; TEMP 36.7; O2SAT 99
== END 2024-08-12 18:27 | disposition home or self-care (01) ==
PROVIDERS: Nurse Practitioner Family; Emergency Provider Student in an Organized Health Care Education/Training Program; PCP Physician Assistant
DX: R07.81 Pleurodynia (principal); R06.02 Shortness of breath; J20.9 Acute bronchitis, unspecified; Z11.59 Encounter for screening for other viral diseases; Z11.4 Encounter for screening for human immunodeficiency virus [HIV]
CPT/HCPCS: 71275; 80053; 83880; 84484; 85025; 86803; 87389; 93005; 96361; 96374; 99284; J1885; J7030; Q9967

== ENCOUNTER 2024-08-21 11:57 | Emergency (ER) | payer OTHER, SELFPAY ==
[2024-08-21 12:22] VITALS: BP 129/90; PULSE 96; RESP 18; TEMP 36.6; O2SAT 98; BMI 34.3
--- NOTE | 2024-08-21 12:30 | CT_ITS ---
FINAL REPORT TECHNIQUE: Thin section axial images were obtained from skull base to vertex without contrast. Coronal and sagittal reconstruction images were obtained from the axial data. Exam was performed using dose reduction techniques such as automated exposure control, adjustment of the mA and kV according to patient size, and use of iterative reconstruction technique. CLINICAL HISTORY: head trauma. tree branch fell and hit the top right side of patient head last pm. dizzy today FINDINGS: There is no mass effect or midline shift. There is no hydrocephalus. There is no intracranial hemorrhage. The posterior fossa is without acute abnormality. The basilar cisterns are preserved. The soft tissues are without acute abnormality. No acute osseous abnormality is identified. IMPRESSION: No acute intracranial abnormality. Reviewed, Interpreted and Dictated by Malu Mendoza MD Transcribed by Clarissa Cates Authenticated and [facility]
--- NOTE | 2024-08-21 12:30 | CT_ITS ---
FINAL REPORT TECHNIQUE: Thin section axial images were obtained through the cervical spine without contrast. Multiplanar reconstruction images were obtained from the axial data. Exam was performed using dose reduction techniques. This study was performed with techniques to keep radiation doses as low as reasonably achievable (ALARA). Individualized dose reduction techniques using automated exposure control or adjustment of mA and/or kV according to the patient's size were employed. CLINICAL HISTORY: dizzy, struck by tree branch on top of head last night COMPARISON: None FINDINGS: There is no acute fracture or acute malalignment of the cervical spine. There is no evidence of unilateral or bilateral facet lock. Vertebral body height is preserved. Very early disc degeneration is noted at the C5-6 level. No acute paraspinal abnormality is identified. IMPRESSION: No acute osseous abnormality of the cervical spine. Reviewed, Interpreted and Dictated by Malu Mendoza MD Transcribed by Clarissa Cates Authenticated and [facility]
--- NOTE | 2024-08-21 12:32 | ED_ITS ---
Discharge Plan Disposition Patient Disposition: Home, Self-Care Condition: Good Prescriptions Prescriptions: New meclizine 25 mg tablet 25 mg PO DAILY PRN (Reason: motion sickness) Qty: 14 0RF No Action fluticasone propionate [Flonase Allergy Relief] 50 mcg/actuation spray,suspension 1 spray intranasal DAILY Qty: 10 1RF Rx Instructions: administer into each nostril cetirizine [Zyrtec] 10 mg tablet 10 mg PO DAILY Qty: 90 3RF Stahist AD 25-60 mg tablet PO Patient Comments: TAKE 1 TABLET BY MOUTH EVERY 8 HOURS FOR NASAL CONGESTION/RUNNY NOSE amoxicillin-pot clavulanate 875-125 mg tablet PO Patient Comments: TAKE 1 TABLET BY MOUTH TWICE DAILY prednisone 20 mg tablet 20 mg PO BID Qty: 10 0RF albuterol sulfate 90 mcg/actuation HFA aerosol inhaler 1 inh inhalation QID PRN (Reason: shortness of breath or wheezing) Qty: 8.5 0RF Referrals Follow up/Referrals: Dali Andrew PA [Primary Care Provider] - See instructions Activity Restrictions/Add. Instructions Additional Instructions/Restrictions: Please return to the emergency department with any worsening signs or symptoms, please utilize all medications as prescribed, I recommend ibuprofen Tylenol, for symptomatic relief. Follow-up with your family doctor in the upcoming days. Clinical Impressions Clinical Impression: Post-concussion syndrome Closed head injury Qualifiers: Encounter type: initial encounter Qualified Code(s): S09.90XA - Unspecified injury of head, initial encounter Instructions Patient Instructions: DI for Concussion, DI for Closed Head Injury Print Language Print Language: Slovak Discharge ED Provider: Malik Escobar General Adult HPI <VERNON De Jesus - Last Filed: 08/21/24 15:50> General Chief complaint: Dizziness Stated complaint: AO hit head 08/20 1929 passout when looking down Time Seen by Provider: 08/21/24 12:21 Mode of Arrival: Ambulatory Source of Information: Patient Description of Symptoms (Recalled from ER Triage Doc. by RN): Patient states she was in a swing attached to a tree branch when the branch snapped and came down and hit her on the top of the head. Complaint of not having control of her upper body when she looks down. Also complains of dizziness and her skull being tender to touch. History of Present Illness HPI narrative: 39-year-old female presents the emergency department with dizziness, lightheadedness, and 2 presyncopal episodes that occurred this morning when looking down . Of note, patient states last night she was sitting on a tree swing , when the branch broke striking her on the top of the head, she denied any LOC, but did have some headache, and complained of some dizziness last night, and poor/restless sleep, she denies any fever chills chest pain shortness of breath, denies real neck pain or tenderness, denies any numbness or tingling, denies any upper or lower extremity weakness, denies any visual disturbance, denies any abdominal pain, no nausea no vomiting no constipation no diarrhea no urinary type symptomatology. Patient has no other real relevant past medical history with the exception of asthma and unknown clotting disorder, does have family history of factor V Leiden, but was found not to have upon test performed by hematology oncology. Triage of vitals grossly unremarkable, denies alcohol tobacco or drug use. Onset (ago): day(s) Related Data Home Medications ?Medication ?Instructions ?Recorded ?Confirmed amoxicillin 875 mg-potassium tab PO 12/02/23 12/02/23 clavulanate 125 mg tablet chlorcyclizine-pseudoephedrine 25 tab PO 12/02/23 12/02/23 mg-60 mg tablet (Stahist AD) Previous Rx's ?Medication ?Instructions ?Recorded cetirizine 10 mg tablet (Zyrtec) 10 mg PO DAILY #90 tabs 08/14/23 fluticasone propionate 50 1 spray intranasal DAILY #10 mL 08/14/23 mcg/actuation nasal spray,suspension (Flonase Allergy Relief) albuterol sulfate 90 mcg/actuation 1 inh inhalation QID PRN shortness 08/12/24 aerosol inhaler of breath or wheezing #8.5 grams prednisone 20 mg tablet 20 mg PO BID #10 tabs 08/12/24 meclizine 25 mg tablet 25 mg PO DAILY PRN motion sickness 08/21/24 #14 tabs Allergies Allergy/AdvReac Type Severity Reaction Status Date / Time No Known Allergies Allergy Verified 12/02/23 13:37 [facility] <VERNON De Jesus - Last Filed: 08/21/24 15:50> [facility] Disclaimer: The information contained in this section may have been updated after the patient was seen, as this information can be updated by other users. 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 , 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) Smoking Status: Never smoker second hand exposure: No alcohol intake: never substance use type: denies use current occupational status: employed Travel in the last 8 weeks?: None household members: family housing: house current occupational exposures/hazards: No caffeine: Yes Have you lived/traveled outside [place] in past 30 days?: No Contact w/someone who lives/traveled outside US past 30 days?: No Exposure to someone with infectious disease in past 14 days?: No Do you have a fever (greater than 100.4 F or 38 C)?: No Have you tested positive for COVID-19?: No Exposed to someone with COVID-19 in past 14 days?: No Do you have a sore throat?: No Do you have a cough?: No Do you have any weakness?: No Do you have any diarrhea?: No Are you experiencing any unusual bleeding?: No Do you have any muscle aches/pain?: No Do you have any abdominal pain?: No Are you experiencing loss of taste or smell?: No Other 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 Have you received the Flu Vaccine for this season: No Have you received the Pneumonia Vaccine: No <VERNON De Jesus - Last Filed: 08/21/24 15:50> ROS Obtained: Yes All systems reviewed & no additional complaints except as documented Physical Exam <VERNON De Jesus - Last Filed: 08/21/24 15:50> General General appearance: alert and in no apparent distress Head Head exam: atraumatic and normocephalic Eye Eye exam: Present PERRL and EOMI ENT ENT exam: Present mucous membranes moist Neck Neck exam: Present normal inspection Chest Chest inspection: Present normal inspection and symmetric chest wall rise Respiratory Respiratory exam: Present normal lung sounds bilaterally; Absent respiratory distress Cardiovascular Cardiovascular exam: Present regular rate and normal rhythm Abdominal Exam Abdominal exam: Present soft; Absent tenderness Extremities Exam Extremities exam: Present normal inspection Back Exam Back exam: Present normal inspection and full ROM; Absent tenderness, paraspinal tenderness or vertebral tenderness Comment: No paraspinal or spinal tenderness palpation of the cervical spine, does not move head in fear of passing out , no overt pain, no spinal tenderness or step- off deformities, Neurological Exam Neurological exam: Present alert, oriented X3 and other (Moves extremities to command, no sensation deficit.) Psychiatric Psychiatric exam: Present normal affect Skin Skin exam: Present warm and dry Medical Decision Making <VERNON De Jesus - Last Filed: 08/21/24 15:50> Medical Records Medical records reviewed: Yes I reviewed the patient's medical records. Screening: Per USPSTF and CDC recommendations, given the prevalence of disease in our region, it is our hospital?s policy to screen for HIV and viral Hepatitis for all patients aged 18 and over and those with ongoing risk factors. Luis Felipe Inquiry Pt receiving controlled substance: No Luis Felipe was queried for this patient: No Vital Signs: 08/21/24 12:22 08/21/24 15:51 Temperature 97.9 F 98.7 F Temperature Source Oral Oral Pulse Rate 64 Pulse Rate [Radial] 96 H Respiratory Rate 18 18 Blood Pressure 124/66 Blood Pressure [Right Arm] 129/90 Blood Pressure Mean [Right Arm] 103 Blood Pressure Source Automatic Cuff Blood Pressure Source [Right Arm] Automatic Cuff Blood Pressure Position Sitting Blood Pressure Position [Right Arm] Sitting 02 Sat by Pulse Oximetry 98 Oxygen Delivery Method Room Air Room Air Lab Data Lab results reviewed: Yes I reviewed the patient's lab results. Lab Results 08/21/24 12:43: WBC 6.8, RBC 4.53, Hgb 13.3, Hct 40.2, MCV 88.7, MCH 29.4, MCHC 33.1, RDW 13.0, Plt Count 300, MPV 9.9, Neut % (Auto) 65.9, Lymph % (Auto) 21.7, [place] % (Auto) 7.5, Eos % (Auto) 4.0, Baso % (Auto) 0.6, Neut # (Auto) 4.5, Lymph # (Auto) 1.5, [place] # (Auto) 0.5, Eos # (Auto) 0.3, Baso # (Auto) 0.0, D-Dimer 0.83 H, Sodium 138, Potassium 4.1, Chloride 107, Carbon Dioxide 26, Anion Gap 9.1, BUN 9, Creatinine 0.60, Estimated Creat Clear 200, Estimated GFR 110, Est GFR ( Amer) 133, Glucose 91, Calcium 9.3, Magnesium 2.1, Total Bilirubin 0.6, AST 24, ALT 20, Alkaline Phosphatase 58, Troponin I < 0.01, NT-Pro-B Natriuret Pep 183 H, Total Protein 7.6, Albumin 4.5, Globulin 3.1, Albumin/Globulin Ratio 1.5, Serum HCG, Qual Negative 08/21/24 12:43 08/21/24 12:43 Orders (Tests/Meds): ED MEDICATIONS Discontinued Medications Generic Name Dose Route Start Last Admin Trade Name Freq PRN Reason Stop Dose Admin Iopamidol 160 ml 08/21/24 14:01 08/21/24 14:02 Iopamidol-370 (76%);100ml Bottle IV 08/21/24 14:02 160 ml ONCE ONE Administration Meclizine HCl 25 mg 08/21/24 12:34 08/21/24 13:02 Meclizine 25mg Tablet PO 08/21/24 12:35 25 mg ONCE ONE Administration Sodium Chloride 100 ml 08/21/24 14:01 08/21/24 14:02 0.9 % Sodium Chloride 50 Ml Vial IV 08/21/24 14:02 100 ml ONCE ONE Administration Sodium Chloride 10 ml 08/21/24 14:01 08/21/24 14:02 Sodium Chloride 0.9% 10ml Syr (Rad Only) IV 09/20/24 14:00 10 ml NEEDED PRN Administration Maintain IV Site ORDERS Category Date Time Status CT angio chest PE protocol Stat Cat Scan 08/21/24 13:[address] angio head Stat Cat Scan 08/21/24 12:[address] angio neck Stat Cat Scan 08/21/24 12:[address] cervical spine wo con Stat Cat Scan 08/21/24 12:[address] head/brain wo con Stat Cat Scan 08/21/24 12:30 Completed Complete Blood Count Auto Diff Stat Lab 08/21/24 12:43 Completed Comprehensive Metabolic Panel Stat Lab 08/21/24 12:43 Completed D-Dimer Stat Lab 08/21/24 12:43 Completed HCG Qualitative, Serum Stat Lab 08/21/24 12:43 Completed Magnesium Stat Lab 08/21/24 12:43 Completed NT Pro Brain Natriuretic Pep. Stat Lab 08/21/24 12:43 Completed Troponin I Stat Lab 08/21/24 12:43 Completed Medical Decision Narrative: 39-year-old female presents emerged department with blunt head injury last night, dizziness lightheadedness and presyncope episode, differential diagnosis could but limited to vagal syncope, situational syncope, postconcussive syndrome, acute SDH, traumatic SAH, peripheral vertigo, cardiac arrhythmia, electrolyte disturbance, PE among others. Discussed patient case with attending patient Dr. Escobar Obtain basic laboratory studies, D-dimer magnesium level proBNP troponin, CT head without contrast EKG and CT cervical spine without contrast, obtain CTA head and neck with and without contrast, trial 25 mg p.o. meclizine for dizziness. CBC unremarkable CMP unremarkable D-dimer is elevated at 0.83. History of PE, and unknown clotting disorder not on anticoagulants, because of elevated D-dimer will also obtain CTA chest without contrast PE protocol. proBNP is minimally elevated at 183 otherwise unremarkable CMP, troponin within normal limits. hCG negative. I reviewed the patient's CT head without contrast along the corresponding radiologic report, no acute intracranial abnormality. CT cervical spine was reviewed by myself along with the corresponding radiologic report, no acute osseous abnormality the cervical spine. I reviewed the patient's CTA chest, CTA head and neck with and without contrast along the corresponding radiologic reports, there is no evidence of significant stenosis or major branch occlusion,, unremarkable CT angiogram of the anterior cerebral vasculature,, no evidence of pulmonary embolism or aortic dissection. I discussed all results with the patient at the bedside, patient is feeling some relief after meclizine, patient most likely has postconcussive syndrome, will give instruction/follow-up recommendations for postconcussive syndrome, patient was given strict ED return precautions, will prescribe meclizine 25 mg p.o. as needed for dizziness, recommend ibuprofen and Tylenol as needed for symptomatic relief. Patient voiced understanding of the Contreet plan/discharge plan. <Malik Escobar MD - Last Filed: 08/22/24 06:59> Vital Signs: 08/21/24 12:22 08/21/24 15:51 Temperature 97.9 F 98.7 F Temperature Source Oral Oral Pulse Rate 64 Pulse Rate [Radial] 96 H Respiratory Rate 18 18 Blood Pressure 124/66 Blood Pressure [Right Arm] 129/90 Blood Pressure Mean [Right Arm] 103 Blood Pressure Source Automatic Cuff Blood Pressure Source [Right Arm] Automatic Cuff Blood Pressure Position Sitting Blood Pressure Position [Right Arm] Sitting 02 Sat by Pulse Oximetry 98 Oxygen Delivery Method Room Air Room Air Lab Data Lab Results 08/21/24 12:43: WBC 6.8, RBC 4.53, Hgb 13.3, Hct 40.2, MCV 88.7, MCH 29.4, MCHC 33.1, RDW 13.0, Plt Count 300, MPV 9.9, Neut % (Auto) 65.9, Lymph % (Auto) 21.7, [place] % (Auto) 7.5, Eos % (Auto) 4.0, Baso % (Auto) 0.6, Neut # (Auto) 4.5, Lymph # (Auto) 1.5, [place] # (Auto) 0.5, Eos # (Auto) 0.3, Baso # (Auto) 0.0, D-Dimer 0.83 H, Sodium 138, Potassium 4.1, Chloride 107, Carbon Dioxide 26, Anion Gap 9.1, BUN 9, Creatinine 0.60, Estimated Creat Clear 200, Estimated GFR 110, Est GFR ( Amer) 133, Glucose 91, Calcium 9.3, Magnesium 2.1, Total Bilirubin 0.6, AST 24, ALT 20, Alkaline Phosphatase 58, Troponin I < 0.01, NT-Pro-B Natriuret Pep 183 H, Total Protein 7.6, Albumin 4.5, Globulin 3.1, Albumin/Globulin Ratio 1.5, Serum HCG, Qual Negative Orders (Tests/Meds): ED MEDICATIONS Discontinued Medications Generic Name Dose Route Start Last Admin Trade Name Freq PRN Reason Stop Dose Admin Iopamidol 160 ml 08/21/24 14:01 08/21/24 14:02 Iopamidol-370 (76%);100ml Bottle IV 08/21/24 14:02 160 ml ONCE ONE Administration Meclizine HCl 25 mg 08/21/24 12:34 08/21/24 13:02 Meclizine 25mg Tablet PO 08/21/24 12:35 25 mg ONCE ONE Administration Sodium Chloride 100 ml 08/21/24 14:01 08/21/24 14:02 0.9 % Sodium Chloride 50 Ml Vial IV 08/21/24 14:02 100 ml ONCE ONE Administration Sodium Chloride 10 ml 08/21/24 14:01 08/21/24 14:02 Sodium Chloride 0.9% 10ml Syr (Rad Only) IV 09/20/24 14:00 10 ml NEEDED PRN Administration Maintain IV Site ORDERS Category Date Time Status CT angio chest PE protocol Stat Cat Scan 08/21/24 13:[address] angio head Stat Cat Scan 08/21/24 12:[address] angio neck Stat Cat Scan 08/21/24 12:[address] cervical spine wo con Stat Cat Scan 08/21/24 12:[address] head/brain wo con Stat Cat Scan 08/21/24 12:30 Completed Complete Blood Count Auto Diff Stat Lab 08/21/24 12:43 Completed Comprehensive Metabolic Panel Stat Lab 08/21/24 12:43 Completed D-Dimer Stat Lab 08/21/24 12:43 Completed HCG Qualitative, Serum Stat Lab 08/21/24 12:43 Completed Magnesium Stat Lab 08/21/24 12:43 Completed NT Pro Brain Natriuretic Pep. Stat Lab 08/21/24 12:43 Completed Troponin I Stat Lab 08/21/24 12:43 Completed ECG Data Tracing #1: I reviewed this ECG and interpreted as documented below: (Sinus rhythm with sinus arrhythmia. Ventricular rate 80, MT 132, QRS 84, QTc 405. Normal axis no acute ischemic change) Medical Decision Narrative: 39-year-old female presents emerged department with blunt head injury last night, dizziness lightheadedness and presyncope episode, differential diagnosis could but limited to vagal syncope, situational syncope, postconcussive syndrome, acute SDH, traumatic SAH, peripheral vertigo, cardiac arrhythmia, electrolyte disturbance, PE among others. Discussed patient case with attending patient Dr. Escobar Obtain basic laboratory studies, D-dimer magnesium level proBNP troponin, CT head without contrast EKG and CT cervical spine without contrast, obtain CTA head and neck with and without contrast, trial 25 mg p.o. meclizine for dizziness. CBC unremarkable CMP unremarkable D-dimer is elevated at 0.83. History of PE, and unknown clotting disorder not on anticoagulants, because of elevated D-dimer will also obtain CTA chest without contrast PE protocol. proBNP is minimally elevated at 183 otherwise unremarkable CMP, troponin within normal limits. hCG negative. I reviewed the patient's CT head without contrast along the corresponding radiologic report, no acute intracranial abnormality. CT cervical spine was reviewed by myself along with the corresponding radiologic report, no acute osseous abnormality the cervical spine. I reviewed the patient's CTA chest, CTA head and neck with and without contrast along the corresponding radiologic reports, there is no evidence of significant stenosis or major branch occlusion,, unremarkable CT angiogram of the anterior cerebral vasculature,, no evidence of pulmonary embolism or aortic dissection. I discussed all results with the patient at the bedside, patient is feeling some relief after meclizine, patient most likely has postconcussive syndrome, will give instruction/follow-up recommendations for postconcussive syndrome, patient was given strict ED return precautions, will prescribe meclizine 25 mg p.o. as needed for dizziness, recommend ibuprofen and Tylenol as needed for symptomatic relief. Patient voiced understanding of the Contreet plan/discharge plan. I was consulted by the TRAM, and we discussed the complexity of the problems being addressed. I approved the treatment and management plan for this patient's care in the Emergency Department, thus performing a substantive portion of the medical decision making. Malik Escobar MD Critical Care <VERNON De Jesus - Last Filed: 08/21/24 15:50> Critical Care Time Critical Care Time: No
--- NOTE | 2024-08-21 12:33 | CT_ITS ---
FINAL REPORT TECHNIQUE: Thin-section axial CT with IV contrast supplemented with multi planar reconstruction under CT angiogram protocol was performed of the neck. This study was performed technique to keep radiation doses as low as reasonably achievable, (ALARA). NASCET criteria was utilized during interpretation. CLINICAL HISTORY: Dizziness, struck by blunt object last night COMPARISON: None FINDINGS: Aortic arch: Arch shows no significant narrowing. Great vessel origins are widely patent. Right carotid: No significant stenosis is seen at the cervical common or internal carotid artery. Left carotid: No significant stenosis is seen at the cervical common or internal carotid artery. Vertebrals: No significant stenosis is present. IMPRESSION: No evidence of significant stenosis or major branch occlusion. Reviewed, Interpreted and Dictated by Malu Mendoza MD Transcribed by Clarissa Cates Authenticated and [facility]
--- NOTE | 2024-08-21 12:33 | CT_ITS ---
FINAL REPORT TECHNIQUE: Thin section axial images are obtained through the brain after intravenous contrast injection. Multiplanar reconstructions were obtained from the axial data. Exam was performed using dose reduction techniques such as automated exposure control, adjustment of the mA and kV according to patient size, and use of iterative reconstruction technique. CLINICAL HISTORY: Dizziness, presyncope, struck by blunt object last COMPARISON: None FINDINGS: The intracerebral portions of the carotid arteries are patent. The anterior and middle cerebral arteries are patent. The posterior cerebral arteries arise from the basilar artery. They are patent. [place] is intact. The basilar artery is patent. The vertebral arteries are patent. There is no significant stenosis, aneurysm, or AVM. IMPRESSION: Unremarkable CT angiogram of the intracerebral vasculature. Reviewed, Interpreted and Dictated by Malu Mendoza MD Transcribed by Clarissa Cates Authenticated and [facility]
--- NOTE | 2024-08-21 12:41 | ECG_ITS ---
APPROVED REPORT Exam: Resting ECG HR:80 bpm ECG Measurements Heart Rate 80 AXES MD 132 P 36 QRSd 84 QRS 19 QT 369 T 1 QTc 405 Conclusion Sinus rhythm Nonspecific T wave changes Electronically signed by : HANNAH RAM, 08/23/2024 19:40:57
[2024-08-21 12:52] LABS: Basophils % 0.6 % (0.1-2.0); Eosinophils # 0.3 Kmm3 (0.0-0.4); Hematocrit 40.2 % (37.0-47.0); Hemoglobin 13.3 g/dL (12.2-16.2); Immature Granulocytes # 0.02 10^3uL; Immature Granulocytes % 0.3 %; Lymphocytes # 1.5 K/mm3 (0.7-4.5); Lymphocytes % 21.7 % (10-50); Mean Corpuscular HGB Conc 33.1 g/dL (31.8-35.4); Mean Corpuscular Hemoglobin 29.4 pg (27.0-31.2); Mean Corpuscular Volume 88.7 fl (81-99); Mean Platelet Volume 9.9 fl (7.4-10.4); Monocytes # 0.5 K/mm3 (0.1-1.0); Monocytes % 7.5 % (1.7-9.3); Neutrophils # 4.5 K/mm3 (1.8-7.8); Neutrophils % 65.9 % (37.0-80.0); Nucleated Red Blood Cells # 0 10^3/uL; Nucleated Red Blood Cells % 0 %; Platelet Count 300 K/mm3 (142-424); Red Blood Count 4.53 M/mm3 (4.20-5.40); Red Cell Distribution Width-SD 42.4 fL; White Blood Count 6.8 K/mm3 (4.8-10.8)
[2024-08-21 13:02] LABS: Alanine Aminotransferase 20 U/L (12-78); Albumin Level 4.5 g/dl (3.5-5.0); Albumin/Globulin Ratio 1.5 (1.1-1.8); Alkaline Phosphatase 58 U/L (38-126); Anion Gap 9.1 mEq/L (5-15); Aspartate Amino Transferase 24 U/L (14-36); Bilirubin,Total 0.6 mg/dl (0.2-1.3); Blood Urea Nitrogen 9 mg/dl (7-17); Calcium 9.3 mg/dl (8.4-10.2); Carbon Dioxide 26 mmol/L (22.0-30.0); Chloride 107 mmol/L (98-107); Creatinine Clearance Estimated 200 mL/min (50-200); Estimated Glomerular Filt Rate 110 ml/min (>60); GFR (African American) 133 ML/MIN (>60); Globulin 3.1 g/dL (1.3-3.2); Glucose 91 mg/dl (74-100); Magnesium 2.1 mg/dl (1.6-2.3); Potassium 4.1 mmoL/L (3.5-5.1); Sodium 138 mmol/L (136-145); Total Protein,Serum 7.6 g/dl (6.3-8.2)
[2024-08-21] MEDS: MECLIZINE 25MG TABLET 25 MG PO (13:02)
[2024-08-21 13:07] LABS: D-Dimer 0.83 ug/mL (0.0-0.5)
--- NOTE | 2024-08-21 13:13 | CT_ITS ---
FINAL REPORT TECHNIQUE: Axial imaging of the chest is obtained after the administration of contrast. 3-D MIP reformatted images were also obtained and reviewed per PE protocol. This study was performed with techniques to keep radiation doses as low as reasonably achievable (ALARA). Individualized dose reduction techniques using automated exposure control or adjustment of mA and/or kV according to the patient's size were employed. CLINICAL HISTORY: History of PE, elevated D-dimer COMPARISON: 08/12/2024 FINDINGS: The pulmonary arteries are well filled. There is no evidence of pulmonary embolus. There is no aortic dissection. Heart size is normal. There is no mediastinal, hilar, or axillary lymphadenopathy. The lungs are clear. There is no pleural or pericardial effusion. Limited evaluation of the upper abdomen is without acute abnormality. No acute osseous abnormality. IMPRESSION: No evidence of pulmonary embolism or aortic dissection. Reviewed, Interpreted and Dictated by Malu Mendoza MD Transcribed by Clarissa Cates Authenticated and [facility]
[2024-08-21 13:15] LABS: NT Pro Brain Natriuretic Pep. 183 pg/mL (0-125)
[2024-08-21 13:17] LABS: Troponin I < 0.01 ng/ml (0.00-0.034)
[2024-08-21 13:26] LABS: HCG Qualitative, Serum Negative (Negative)
[2024-08-21] MEDS: SODIUM CHLORIDE 0.9% 10ML SYR (RAD ONLY) 10 ML IV (14:02)
[2024-08-21] MEDS: IOPAMIDOL-370 (76%);100ML BOTTLE 160 ML IV (14:02)
[2024-08-21] MEDS: 0.9 % SODIUM CHLORIDE 50 ML VIAL 100 ML IV (14:02)
[2024-08-21 15:51] VITALS: BP 124/66; PULSE 64; RESP 18; TEMP 37.1; O2SAT 97
== END 2024-08-21 16:03 | disposition home or self-care (01) ==
PROVIDERS: Physician Assistant; Emergency Provider Emergency Medicine; PCP Physician Assistant
DX: S06.0X0A Concussion without loss of consciousness, initial encounter (principal); R55 Syncope and collapse; R42 Dizziness and giddiness; I49.9 Cardiac arrhythmia, unspecified; R79.89 Other specified abnormal findings of blood chemistry; W20.8XXA Other cause of strike by thrown, projected or falling object, initial encounter
CPT/HCPCS: 70450; 70496; 70498; 71275; 72125; 80053; 83735; 83880; 84484; 84703; 85025; 85378; 93005; 99285; Q9967

== ENCOUNTER 2024-09-27 10:49 | Emergency (ER) | payer OTHER, SELFPAY ==
[2024-09-27 10:58] VITALS: BP 161/89; PULSE 87; RESP 13; TEMP 36.9; O2SAT 100; BMI 34.9
--- OUTSIDE RECORDS SUMMARY | 2024-09-27 11:15 | XMS_ITS | Data Portability ---
Author Organization [facility] Address [address] [place] [address] Assessment No assessment recorded. Plan of Treatment Reminders Order Date Submit Date Provider Last Modified By Organization Details Last Modified Time Details Appointments None recorded. Lab CBC w/ auto diff 2023 [place] [facility] [address] [place], [address], 4 10:08:45 CMP, serum or plasma 2023 [place] [facility] [address] [place], [address], 4 10:08:46 TSH, ultra-sens itive, serum 2023 [place] [facility] [address] [place], [address], 4 10:08:47 vitamin D, 25-hydroxy , total, serum 2023 [place] [facility] [address] [place], [address], 4 10:08:48 lipid panel, serum 2023 024 [place] [facility] [address] [place], [address], 4 10:08:47 D-dimer, quant, plasma 11/2023 [place] [facility] ([place]), [address], [place], [address], 10:08:48 Referral None recorded. Procedures None recorded. Surgeries None recorded. Imaging MAMMO, screening, bilateral 2023 [facility] (Scheduling), [address], [place], [address], 13:45:27 CT, angiogram, chest, w/wo contrast - same day as the mammogram 2023 [facility] Scheduling, [address], [place], [address], 13:46:31 Medication Orders None recorded. Patient TargetsNo targets recorded. Patient Instructions Encounter Date Encounter Id Patient Instructions Last Modified By Organization Details Last Modified Time 02/13/2024 [id number] mammogram: about this test [email or web address] Not available 02/13/2024 17:51:26 shortness of breath: care instructions [email or web address] Not available 02/13/2024 17:51:26 body mass index: care instructions [email or web address] Not available 02/14/2024 08:54:53 learning about healthy weight [email or web address] Not available 02/14/2024 08:54:53 Reason for Referral None Reported. Results Created Date Observation Date Name Description Value Unit Range Abnormal Flag Note LastModifiedBy Organization Detail LastModifiedTime 02/13/2002/15/2024 CBC WITH DIFFE RENTI AL/PL ATELE T WBC 6.4 x10e3 /uL 3.4-10 .8 normal Not Available [facility] ([facility]) [address] [facility], [place], [address], 02/15/2024 10:08:45 02/13/2002/15/2024 CBC WITH DIFFE RENTI AL/PL ATELE T RBC 4.36 x10e6 /uL 3.77-5 .28 normal Not Available [facility] ([facility]) [address] [place], [address], 02/15/2024 10:08:45 02/13/20 24 02/15/2024 CBC WITH DIFFE RENTI AL/PL ATELE T hemoglobin 12.9 g/dL 11.1-1 5.9 normal Not Available [facility] ([facility]) [address] [place], [address], 02/15/2024 10:08:45 02/13/20 24 02/15/2024 CBC WITH DIFFE RENTI AL/PL ATELE T hematocrit 38.9 % 34.0-4 6.6 normal Not Available [facility] ([facility]) [address] [place], [address], 02/15/2024 10:08:45 02/13/20 24 02/15/2024 CBC WITH DIFFE RENTI AL/PL ATELE T MCV 89 fL 79-97 normal Not Available [facility] ([facility]) [address] [place], [address], 02/15/2024 10:08:45 02/13/20 24 02/15/2024 CBC WITH DIFFE RENTI AL/PL ATELE T MCH 29.6 pg 26.6-3 3.0 normal Not Available [facility] ([facility]) [address] [place], [address], 02/15/2024 10:08:45 02/13/20 24 02/15/2024 CBC WITH DIFFE RENTI AL/PL ATELE T MCHC 33.2 g/dL 31.5-3 5.7 normal Not Available [facility] ([facility]) [address] [place], [address], 02/15/2024 10:08:45 02/13/20 24 02/15/2024 CBC WITH DIFFE RENTI AL/PL ATELE T RDW 12.7 % 11.7-1 5.4 Not Available [facility] ([facility]) [address] [place], [address], 02/15/2024 10:08:45 02/13/20 24 02/15/2024 CBC WITH DIFFE RENTI AL/PL ATELE T platelets 313 x10e3 /uL 150-45 0 normal Not Available [facility] ([facility]) [address] [facility], [place], [address], 02/15/2024 10:08:45 02/13/20 24 02/15/2024 CBC WITH DIFFE RENTI AL/PL ATELE T neutrophils 59 % not estab. normal Not Available [facility] ([facility]) [address] [facility], [place], [address], 02/15/2024 10:08:45 02/13/20 24 02/15/2024 CBC WITH DIFFE RENTI AL/PL ATELE T lymphs 30 % not estab. normal Not Available [facility] ([facility]) [address] [facility], [place], [address], 02/15/2024 10:08:45 02/13/20 24 02/15/2024 CBC WITH DIFFE RENTI AL/PL ATELE T monocytes 8 % not estab. normal Not Available [facility] ([facility]) [address] [facility], [place], [address], 02/15/2024 10:08:45 02/13/20 24 02/15/2024 CBC WITH DIFFE RENTI AL/PL ATELE T eos 2 % not estab. normal Not Available [facility] ([facility]) [address] [facility], [place], [address], 02/15/2024 10:08:45 02/13/20 24 02/15/2024 CBC WITH DIFFE RENTI AL/PL ATELE T basos 1 % not estab. 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 0 normal Not Available [facility] ([facility]) [address] [place], [address], 02/15/2024 10:08:45 02/13/20 24 02/15/2024 CBC WITH DIFFE RENTI AL/PL ATELE T lymphs (absolute) 1.9 x10e3 /uL 0.7-3. 1 normal Not Available [facility] ([facility]) [address] [place], [address], 02/15/2024 10:08:45 02/13/20 24 02/15/2024 CBC WITH DIFFE RENTI AL/PL ATELE T monocytes(ab solute) 0.5 x10e3 /uL 0.1-0. 9 normal Not Available [facility] ([facility]) [address] [place], [address], 02/15/2024 10:08:45 02/13/20 24 02/15/2024 CBC WITH DIFFE RENTI AL/PL ATELE T eos (absolute) 0.1 x10e3 /uL 0.0-0. 4 normal Not Available [facility] ([facility]) [address] [place], [address], 02/15/2024 10:08:45 02/13/20 24 02/15/2024 CBC WITH DIFFE RENTI AL/PL ATELE T baso (absolute) 0.0 x10e3 /uL 0.0-0. 2 normal Not Available [facility] ([facility]) [address] [place], [address], 02/15/2024 10:08:45 02/13/20 24 02/15/2024 CBC WITH DIFFE RENTI AL/PL ATELE T immature granulocytes 0 % not estab. Not Available [facility] ([facility]) [address] [facility], [place], [address], 02/15/2024 10:08:45 02/13/20 24 02/15/2024 CBC WITH DIFFE RENTI AL/PL ATELE T immature grans (abs) 0.0 x10e3 /uL 0.0-0. 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 METAB OLIC PANEL (14) glucose 100 mg/dL 70-99 above high normal Not Available [facility] ([facility]) [address] [facility], [place], [address], 02/15/2024 10:08:46 02/13/20 24 02/15/2024 COMP. METAB OLIC PANEL (14) BUN 8 mg/dL 6-24 normal Not Available [facility] ([facility]) [address] [facility], [place], [address], 02/15/2024 10:08:46 02/13/20 24 02/15/2024 COMP. METAB OLIC PANEL (14) creatinine 0.63 mg/dL 0.57-1 .00 normal Not Available [facility] ([facility]) [address] [facility], [place], [address], 02/15/2024 10:08:46 02/13/20 24 02/15/2024 COMP. METAB OLIC PANEL (14) eGFR 115 mL/mi n/1.7 3 >59 normal Not Available [facility] ([facility]) [address] [facility], [place], [address], 02/15/2024 10:08:46 02/13/20 24 02/15/2024 COMP. METAB OLIC PANEL (14) BUN/creatini ne ratio 13 9-23 normal Not Available [facility] ([facility]) [address] [facility], [place], [address], 02/15/2024 10:08:46 02/13/20 24 02/15/2024 COMP. METAB OLIC PANEL (14) sodium 138 mmol/ L 134-14 4 normal Not Available [facility] ([facility]) [address] [facility], [place], [address], 02/15/2024 10:08:46 02/13/20 24 02/15/2024 COMP. METAB OLIC PANEL (14) potassium 4.3 mmol/ L 3.5-5. 2 normal Not Available [facility] ([facility]) [address] [facility], [place], [address], 02/15/2024 10:08:46 02/13/20 24 02/15/2024 COMP. METAB OLIC PANEL (14) chloride 107 mmol/ L 96-106 above high normal Not Available [facility] ([facility]) [address] [facility], [place], [address], 02/15/2024 10:08:46 02/13/20 24 02/15/2024 COMP. METAB OLIC PANEL (14) carbon dioxide, total 21 mmol/ L 20-29 normal Not Available [facility] ([facility]) [address] [facility] [place], [address], 02/15/2024 10:08:46 02/13/20 24 02/15/2024 COMP. METAB OLIC PANEL (14) calcium 9.3 mg/dL 8.7-10 .2 normal Not Available [facility] ([facility]) [address] [facility], [place], [address], 02/15/2024 10:08:46 02/13/20 24 02/15/2024 COMP. METAB OLIC PANEL (14) protein, total 6.7 g/dL 6.0-8. 5 normal Not Available [facility] ([facility]) [address] [facility], [place], [address], 02/15/2024 10:08:46 02/13/20 24 02/15/2024 COMP. METAB OLIC PANEL (14) albumin 4.0 g/dL 3.9-4. 9 normal Not Available [facility] ([facility]) [address] [facility] [place], [address], 02/15/2024 10:08:46 02/13/20 24 02/15/2024 COMP. METAB OLIC PANEL (14) globulin, total 2.7 g/dL 1.5-4. 5 Not Available [facility] ([facility]) [address] [facility] [place], [address], 02/15/2024 10:08:46 02/13/20 24 02/15/2024 COMP. METAB OLIC PANEL (14) bilirubin, total <0.2 mg/dL 0.0-1. 2 Not Available [facility] ([facility]) [address] [facility] [place], [address], 02/15/2024 10:08:46 02/13/20 24 02/15/2024 COMP. METAB OLIC PANEL (14) alkaline phosphatase 66 IU/L 44-121 normal Not Available [facility] ([facility]) [address] [facility] [place], [address], 02/15/2024 10:08:46 02/13/20 24 02/15/2024 COMP. METAB OLIC PANEL (14) AST (SGOT) 15 IU/L 0-40 normal Not Available [facility] ([facility]) [address] [facility] [place], [address], 02/15/2024 10:08:46 02/13/20 24 02/15/2024 COMP. METAB OLIC PANEL (14) ALT (SGPT) 14 IU/L 0-32 normal Not Available [facility] ([facility]) [address] [facility] [place], [address], 02/15/2024 10:08:46 02/13/20 24 02/15/2024 LIPID PANEL cholesterol, total 162 mg/dL 100-19 9 normal Not Available [facility] ([facility]) [address] [facility] [place], [address], 02/15/2024 10:08:47 02/13/20 24 02/15/2024 LIPID PANEL triglyceride s 99 mg/dL 0-149 normal Not Available [facility] ([facility]) [address] [facility] [place], [address], 02/15/2024 10:08:47 02/13/20 24 02/15/2024 LIPID PANEL HDL cholesterol 45 mg/dL >39 normal Not Available [facility] ([facility]) [address] [facility] [place], [address], 02/15/2024 10:08:47 02/13/20 24 02/15/2024 LIPID PANEL VLDL cholesterol ingrid 18 mg/dL 5-40 Not Available [facility] ([facility]) [address] [facility] [place], [address], 02/15/2024 10:08:47 11/07/02/15/2024 LIPID PANEL LDL chol calc ([facility]) 99 mg/dL 0-99 Not Available [facility] ([facility]) [address] [facility], [place], [address], 02/15/2024 10:08:47 02/13/20 24 02/15/2024 LIPID PANEL LDL calc 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 Not Available [facility] ([facility]) [address] [facility], [place], [address], 02/15/2024 10:08:47 02/13/20 24 02/15/2024 TSH TSH 1.100 uIU/m L 0.450- 4.500 normal Not Available [facility] ([facility]) [address] [facility], [place], [address], 02/15/2024 10:08:47 02/13/20 24 02/15/2024 VITAM IN D, 25-HY DROXY vitamin D, 25-hydroxy 29.1 NG/mL 30.0-1 00.0 below low normal Vitam in D defic iency has been defin ed by the Insti tute of Medic ine and an Endoc rine Socie ty pract ice guide line as a level of serum 25-OH vitam in D less than 20 ng/mL (1,2) . The Endoc rine Socie ty went on to furth er defin e vitam in D insuf ficie ncy as a level betwe en 21 and 29 ng/mL (2). 1. IOM (Inst itute of Medic ine). 2010. Dieta ry refer ence intak es for calci um and D. Barb barrow [place]: The Natio nal [facility] Press . 2. Isaias mcdonald [place], Fili spangler [place], Yon off-F errar i CARTAGENA, et al. Evalu ation , treat ment, and preve ntion of vitam in D defic iency : an Endoc rine Socie ty clini ingrid pract ice guide line. JCEM. 2010; 96(7) :1911 -30. Not Available [facility] ([facility]) [address] [facility], [place], [address], 02/15/2024 10:08:48 02/13/20 24 02/15/2024 D-DIM ER D-dimer 0.47 mg/L_ feu 0.00-0 .49 Accor ding to the assay manuf actur er's publi shed packa ge inser t, a jefe l (<0.5 0 mg/L FEU) D-dim er resul t in conju nctio n with a non-h igh clini ingrid proba bilit y asses sment , exclu madeleine deep vein throm bosis (DVT) and pulmo nary embol ism (PE) with high sensi tivit y. D-dim er value s incre ase with age and this can make VTE exclu bertha of an older popul ation diffi cult. To addre ss this, the Ameri can Colle ge of Physi cians , based on best avail able evide nce and recen t guide lines , recom mends that clini cians use age-a djust ed D-dim er thres holds in patie nts great er than 50 years of age with: a) a low proba bilit y of PE who do not meet all Pulmo nary Embol ism Rule Out Crite vira, or b) in those with inter media te proba bilit y of PE. The formu la for an age-a djust ed D-dim er cut-o ff is age/ 100 . For examp le, a 60 year old patie nt would have an age-a djust ed cut-o ff of 0.60 mg/L FEU and an 80 year old 0.80 mg/L FEU. Not Available [facility] ([facility]) [address], [place], [address], 02/15/2024 10:08:48 03/10/20 24 03/04/2024 MAMMO , breonna pablo, bilat eral No observ ation record ed. [facility] ([facility]) [address], [place], [address], 03/19/2024 12:21:25 03/10/20 24 03/04/2024 CT, angio gram, chest , w/wo contr ast No observ ation record ed. [facility] Scheduling [address], [place], [address], 03/19/2024 12:21:25 03/10/20 24 03/04/2024 CT, angio gram, chest , w/wo contr ast No observ ation record ed. [facility] Scheduling [address], [place], [address], 03/19/2024 12:21:26 05/07/1905/04/2024 XR, ankle , 3 or more view No observ ation record ed. [email or web address] [facility] ([facility]) [address], [place], [address], 05/07/2024 11:12:59 Result Notes None recorded. Problems Name Problem SNOMED Code Status Onset Date Resolution Date Notes Provider Name and Address Organization Details Recorded Time Dyspnea [id number] Active 2023 VERNON Jiang [address] [place] [address], [phone], [employer] 4 17:50:38 Pain of left ankle joint [id number] 3 Active 2024 VERNON Jiang [address] [place] [address], [phone], [employer] 5 16:44:54 Problem Notes None recorded. Procedures Surgical History Date Name Laterality Status Provider Name and Address Organization Details Recorded Time 3 Most Recent Mammogram completed [facility] 02/13/2024 17:30:20 Other completed [facility]. 02/13/2024 17:34:45 Imaging Results None recorded. Procedure Notes None recorded. Medical Equipment None Reported. Allergies No known drug allergies Medications Name Sig Start Date Stop Date Status Note LastModified by Organization Details LastModified Time cetirizine 10 mg tablet 02/12 completed Not Available Not Available Not Available azithromyci n 250 mg tablet TAKE 2 TABLETS BY MOUTH ON DAY 1, AND THEN TAKE 1 TABLET BY MOUTH ONCE A DAY ON DAY 2 THROUGH DAY 5 02/12 completed Not Available Not Available Not Available meclizine 12.5 mg tablet 02/12 completed Not Available Not Available Not Available benzonatate 100 mg capsule TAKE 1 CAPSULE BY MOUTH THREE TIMES DAILY NEEDED FOR COUGH 02/12 completed Not Available Not Available Not Available methylpredn isolone 4 mg tablets in a dose pack TAKE BY MOUTH DIRECTED ON INSIDE OF PACKAGE FOR 6 DAYS 02/12 completed Not Available Not Available Not Available fluticasone propionate 50 mcg/actuati on nasal spray,suspe nsion USE 1 TO 2 SPRAY(S) IN EACH NOSTRIL ONCE DAILY NEEDED active Not Available Not Available No t Available amoxicillin 875 mg-potassiu m clavulanate 125 mg tablet TAKE 1 TABLET BY MOUTH TWICE DAILY 02/12 completed Not Available Not Available Not Available Ventolin HFA 90 mcg/actuati on aerosol inhaler INHALE 1 TO 2 PUFFS BY MOUTH 4 TIMES DAILY NEEDED FOR SHORTNESS OF BREATH FOR WHEEZING 02/12 completed Not Available Not Available Not Available Stahist AD 25 mg-60 mg tablet TAKE 1 TABLET BY MOUTH EVERY 8 HOURS FOR NASAL CONGESTIO N/RUNNY NOSE 02/12 completed Not Available Not Available Not Available Vitals Date Recorded Body weight Body mass index (BMI) Body height Oxygen saturation Oxygen saturation in Arterial blood by Pulse oximetry Heart rate Systolic blood pressure Diastolic blood pressure Provider Name and Address Organization Details Last Updated DateTime 4 606604. 09 g 34.9 kg/m2 172.72 cm 98 % 98 % 92 /min 119 mm[Hg] 84 mm[Hg] Jennifer Heller [facility]. 17:29:58 Social History Question Answer Notes LastModified by Organizat ion Details LastModified Time Tobacco Smoking Status Never Smoker Jennifer farr [facility]. 02/13/2024 17:32:58 Do You Have An Advance Directive? No Information not available 02/13/2024 Is Your Home Air Conditioned? Yes Information not available 02/13/2024 If You Are , What Was Your Level Of Alcohol Consumption Prior To ? None Information not available 02/13/2024 How Many Years Have You Consumed Alcohol? 10 Information not available 02/13/2024 Do You Wear A Helmet When Biking? No Information not available 02/13/2024 Are You Blind Or Do You Have Difficulty Seeing? Yes Information not available 02/13/2024 What Is Your Level Of Caffeine Consumption? Heavy Information not available 02/13/2024 What Type Of Pure Pak Machine Operator Do You Use? None Information not available 02/13/2024 Have You Been To An Area Known To Be High Risk For COVID-19? No Information not available 02/13/2024 Are You Deaf Or Do You Have Serious Difficulty Hearing? No Information not available 02/13/2024 What Type Of Diet Are You Following? REGULAR Information not available 02/13/2024 What Is The Highest Grade Or Level Of School You Have Completed Or The Highest Degree You Have Received? [id number] Information not available 02/13/2024 Have There Been Any Changes To Your Family Or Social Situation? No Information no t available 02/13/2024 Are There Any Guns Present In Your Home? Yes Information not available 02/13/2024 Which Of Your Hands Is Dominant? Bilateral Information not available 02/13/2024 Do You Have A Medical Power Of Drafting Layout Worker? No Information not available 02/13/2024 What Was The Date Of Your Most Recent Tobacco Screening? 02/13/2024 Information not available 02/13/2024 Have You Ever Been Counseled For Unhealthy Alcohol Use? No Information not available 02/13/2024 Do You Have Any Pets? Yes Information not available 02/13/2024 What Is Your Relationship Status? Information not available 02/13/2024 Have You Repeated Any Grades? No Information not available 02/13/2024 Do You Use Your Seat Belt Or Car Seat Routinely? Yes Information not available 02/13/2024 Are You Sexually Active? No Information not available 02/13/2024 Do You Have Any Siblings? Yes Information not available 02/13/2024 Do You Have Smoke And Carbon Monoxide Detectors In Your Home? Yes Information not available 02/13/2024 Are You Passively Exposed To Smoke? No Information no t available 02/13/2024 Are There Any Smokers In Your House? No Information not available 02/13/2024 Do You Participate In Social Media? Yes Information not available 02/13/2024 What Types Of Sporting Activities Do You Participate In? Haha Information not available 02/13/2024 Do You Use Sunscreen Routinely? No Information not available 02/13/2024 Has Tobacco Cessation Counseling Been Provided? No Information not available 02/13/2024 Have You Recently Traveled Abroad? No Information not available 02/13/2024 Do You Have Difficulty Walking Or Climbing Stairs? Yes Information not available 02/13/2024 Are You Currently In School? No Information not available 02/13/2024 What Contraceptive Method Was Reported At Start Of This Visit? IUD Unspecified Information not available 02/13/2024 Do You Have Any Dietary Restrictions? No Information not available 02/13/2024 How Many Days In The Past Year Have You Consumed 4 Or More Drinks? 0 Information no t available 02/13/2024 Sex: Female Functional Status Question Answer Note LastModified by Organizat ion Details LastModified Time Do you use any illicit or recreational drugs? No Information not available 02/13/2024 Do you or have you ever used any other forms of tobacco or nicotine? No Information not available 02/13/2024 What is your level of alcohol consumption? Occasional Information not available 02/13/2024 Are you currently employed? Yes Information not available 02/13/2024 Do you have transportation difficulties? No Information not available 02/13/2024 Are you able to walk? YESWOREST Information not available 02/13/2024 Do you have difficulty doing errands alone? No Information not available 02/13/2024 Are you able to care for yourself? No Information n ot available 02/13/2024 Do you have difficulty dressing or bathing? No Information not available 02/13/2024 What is your exercise level? None Information not available 02/13/2024 Mental Status Question Answer Note LastModified by Organizat ion Details LastModified Time Do you feel stressed (tense, restless, nervous, or anxious, or unable to sleep at night)? PM0050-2 Information not available 02/13/2024 Do you have difficulty concentrating, remembering or making decisions? No Information no t available 02/13/2024 Are you or have you been involved with bullying? No Information not available 02/13/2024 Family History Relationship Description Onset Age of this Age Resolved Age Notes LastModified by Organization Details LastModified Time Mother Factor V deficiency Not available 02/12 17:32:00 Brother Factor V deficiency Not available 02/12 17:32:06 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 Condition Response Coronary Artery Disease N Other Y Gout N Kidney Stones N Blood Diseases N Hyperthyroidism N Blood Transfusion N Breast Cancer N Emergency room visit since last appointm ent. N COPD N Depression N Dermatologic Disorders N Lung Disease N Hypothyroidism N Developmental or Behavioral Disorders N Defects or Inherited Disease N Breast Problem N Difficulty Swallowing N Anesthesia Complications N History of STI N Anxiety Disorder N Meniere's disease N Autoimmune disease N Muscle, Joint, or Bone Problems N Vision or Eye Problems N Arthritis N Infertility N Polyps N Mental Disorder N Congenital Anomalies N Acid Reflux (GERD) N Cancer N Stroke N Neurologic/Epilepsy N Endometriosis N Bladder or Kidney Problems N High Cholesterol N Liver Disease N Psychiatric/Mental Health Condition N Organ Transplant N Fibromyalgia N Headaches N Schizophrenia N Dialysis N Kidney Disease N Allergies/Hayfever N Heart Problems Y Ear or Hearing Problems N Hospitalizations N Learning Disorder N Artificial Joints N Thyroid Problems N GI Problems N Acne N ADD/ADHD N Eating Disorder N Anemia N Constipation N Mental Illness N Ovarian Cancer N Diabetes N Bedwetting N Hepatitis/Liver Disease N Tuberculosis N Eczema N Diverticulitis N Abuse/Domestic Violence N Asthma N Trauma/Violence N Substance Abuse N Reflux/GERD N Depression/ depression N Hepatitis N Heart Disease N Pulmonary Embolism N Tourette Syndrome N Chronic Ear Infections N Pre-Eclampsia N Hypertension N Chicken Pox N Autism Spectrum Disorder (ASD) N Osteoporosis N Thrombophilias N Gynecological History Statement/Question Response Menses Monthly N HPV Vaccine N Date of Last Pap Smear Current Control Method IUD Most Recent Mammogram 10/12/2022 Age at First Child 15 Obstetrics History GPAL:G 8 P 6 0 2 6 Type Value Full Term 6 Spontaneous 2 Living 6 Total 8 Past Encounters Encounter ID Performer Location Encounter Start Date Encounter Closed Date Diagnosis/Indication Diagnosis SNOMED-CT Code Diagnosis ICD10 Code Diagnosis Note [id number] VERNON Jiang [facility] [address] [place] [address] 02/13/2024 17:20:28 02/13/2024 18:05:20 Screening mammography 65365614 Z12.31 Dyspnea 063146396 R06.00 History of pulmonary embolus 293174961 Z86.711 Body mass index 30+ - obesity 408829691 Z68.34 Health Concerns Section Related Observation LastModified by Organization Detai ls LastModified Time None Recorded Concern Status LastModified by Organization Details LastModified Time None Recorded Advance Directives Directive N: Payers Insurance Date Sequence Insurance Name Policy Number Policy Busch Covered Member ID Busch Member ID Guarantor Name 05/07/2024 1 [facility] (MEDICAID HMO) Jeanie Vergara [id number] Jeanie Vergara Notes Date Note Type Note Provider Name and Address Organization Details Recorded Time 02/13/2024 text/html Patient presents to establish care at [facility]. Patient notes that she has random occurences of shortness of breath. Has noticed for the past 5-6 weeks. It is sporadic and infrequent. Most noteable when she is talking a lot, such as talking on the phone. However, she is overall very active and doesn't really notice it with exertion per se. Hiked last weekend and didn't notice shortness of breath at all. She is worried because she had a pulmonary embolus approximately 6 years ago with the delivery of her last child. VERNON Jiang [address] [place] [address], [phone], [place] [facility] [employer] 02/14/2024 08:55:51 OBGyn Episode No OBEpisode recorded.
--- OUTSIDE RECORDS SUMMARY | 2024-09-27 11:15 | XMS_ITS | Clinical Summary ---
Author Organization [facility] Address [address] [place] [address] Care Team Providers Care Business Consult Name Role Phone Onofre Sheffield MD Primary Care Provider [phone] Allergies No known active allergies Social History Tobacco Use Types Packs/Day Years Used Date Smoking Tobacco: Never Assessed Comments Unknown Sex and Gender Information Value Date Recorded Sex Assigned at Not on file Legal Sex Female 7:36 PM EDT Gender Identity Not on file Sexual Orientation Not on file Last Filed Vital Signs Vital Sign Reading Time Taken Comments Blood Pressure 129/100 03/08/2021 5:00 AM EST Pulse 77 03/08/2021 5:00 AM EST Temperature 36.7 C (98.1 F) 03/07/2021 8:42 PM EST Respiratory Rate 27 03/08/2021 5:00 AM EST Oxygen Saturation 95% 03/08/2021 5:00 AM EST Inhaled Oxygen Concentration - - Weight - - Height - - Body Mass Index - - Plan of Treatment Health Maintenance Due Date Last Done Comments [facility]-Depression Screening 1983 [facility]-Infant/Child/Adol SDOH Screenings 1983 [facility]-Varicella Vaccines (1 of 2 - 13+ 2-dose series) 08/08/1996 HPV Vaccines (1 - 3-dose series) 08/08/1998 [facility]- SDOH Screenings 08/08/2001 [facility]-Adult SDOH Screenings 08/08/2001 [facility]-DTaP,Tdap,and Td Vaccine s (1 - Tdap) 08/08/2002 [facility]-Hepatitis B Vaccines (1 of 3 - 19+ 3-dose series) 08/08/2002 [facility]-Pap Smear 08/08/2004 [facility]-Cervical Cancer Screening 08/08/2013 [facility]-HPV/Cotest 08/08/2013 [id number] Vaccine (1 - 20 24-25 season) 2023 [facility]-Influenza Vaccine (Seaso n Ended) 2024 [facility]-Zoster Vaccines (1 of 2) 08/08/2033 [facility]-Hepatitis A Vaccines Aged Out 01/19/2018 No longer eligible based on patient's age to complete this topic [facility]-HIB Vaccines Aged Out No longer e ligible based on patient's age to complete this topic [facility]-IPV Vaccines Aged Out No longer e ligible based on patient's age to complete this topic [facility]-Pneumococcal Vaccine: Pediatrics (0 to 5 Years) and At-Risk Patients (6 to 49 Years) Aged Out No long er eligible based on patient's age to complete this topic [facility]-Rotavirus Vaccines Aged Out No lo nger eligible based on patient's age to complete this topic Insurance [employer] [facility] MEDICAID Care Teams Business Consult Relationship Specialty Start Date End Date Onofre Sheffield MD [address] [place] [id number] PCP - General 08/19/20
--- NOTE | 2024-09-27 11:32 | ED_ITS ---
Discharge Plan Disposition Chief Complaint: Skin/Abscess/Foreign Body Prescriptions Prescriptions: No Action fluticasone propionate [Flonase Allergy Relief] 50 mcg/actuation spray,suspension 1 spray intranasal DAILY Qty: 10 1RF Rx Instructions: administer into each nostril cetirizine [Zyrtec] 10 mg tablet 10 mg PO DAILY Qty: 90 3RF Stahist AD 25-60 mg tablet PO Patient Comments: TAKE 1 TABLET BY MOUTH EVERY 8 HOURS FOR NASAL CONGESTION/RUNNY NOSE amoxicillin-pot clavulanate 875-125 mg tablet PO Patient Comments: TAKE 1 TABLET BY MOUTH TWICE DAILY prednisone 20 mg tablet 20 mg PO BID Qty: 10 0RF albuterol sulfate 90 mcg/actuation HFA aerosol inhaler 1 inh inhalation QID PRN (Reason: shortness of breath or wheezing) Qty: 8.5 0RF meclizine 25 mg tablet 25 mg PO DAILY PRN (Reason: motion sickness) Qty: 14 0RF Referrals Follow up/Referrals: Dali Andrew PA [Primary Care Provider, Medical] - See instructions Instructions Patient Instructions: DI for Skin Abscess Print Language Print Language: Hungarian Discharge ED Provider: Mandie Solo General Adult HPI General Chief complaint: Skin/Abscess/Foreign Body Stated complaint: Q-tip stuck in L ear Time Seen by Provider: 09/27/24 11:26 Mode of Arrival: Ambulatory Source of Information: Patient Description of Symptoms (Recalled from ER Triage Doc. by RN): pt presents to ED with c/o tip of qtip stuck in her left ear. pt reports that she had some drainage coming out and she attempted to remove it from her ear and the qtip cotton part got stuck in her ear. 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 History of Present Illness HPI narrative: Patient is a 39-year-old with no significant past medical history presents to the emergency department with foreign body in the left ear. Patient was cleaning the ears with a Q-tip and the Q-tip tip got stuck in her left ear. Pat rambo feels like her equilibrium is off no decreased hearing. Related Data Home Medications ?Medication ?Instructions ?Recorded ?Confirmed amoxicillin 875 mg-potassium tab PO 12/02/23 12/02/23 clavulanate 125 mg tablet chlorcyclizine-pseudoephedrine 25 tab PO 12/02/2311/07 mg-60 mg tablet (Stahist AD) Previous Rx's ?Medication ?Instructions ?Recorded cetirizine 10 mg tablet (Zyrtec) 10 mg PO DAILY #90 ta bs 08/14/23 fluticasone propionate 50 1 spray intranasal DAILY #10 mL 08/14/23 mcg/actuation nasal spray,suspension (Flonase Allergy Relief) albuterol sulfate 90 mcg/actuation 1 inh inhalation QI D PRN shortness 08/12/24 aerosol inhaler of breath or wheezing #8.5 g champ prednisone 20 mg tablet 20 mg PO BID #10 tabs meclizine 25 mg tablet 25 mg PO DAILY PRN motion si ckness 08/21/24 #14 tabs Allergies Allergy/AdvReac Type Severity Reaction Status Date / Time No Known Allergies Allergy Verified 12/02/23 13:37 [facility] Disclaimer: The information contained in this section may have been updated after the patient was seen, as this information can be updated by other users. 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 , [employer]) Chest pain Abscessed tooth Tooth pain Acute bronchitis Insect bite Laceration of forearm, right Exposure to COVID-19 virus Lumbar radiculopathy Absent sense of smell Low back strain History of pulmonary embolus (PE) Superficial bruising of back Abdominal pain, LLQ Need for Tdap vaccination Pharyngitis Hiatal hernia Axillary mass Blood in stool Back Pain Surgical History , [employer]) No significant past surgical history Family History , [employer]) No significant family history Social History , [employer]) Smoking Status: Never smoker second hand exposure: No alcohol intake: never substance use type: denies use current occupational status: employed Travel in the last 8 weeks?: None household members: family housing: house current occupational exposures/hazards: No caffeine: Yes Have you lived/traveled outside [place] in past 30 days?: No Contact w/someone who lives/traveled outside US past 30 days?: No Exposure to someone with infectious disease in past 14 days?: No Do you have a fever (greater than 100.4 F or 38 C)?: No Have you tested positive for COVID-19?: No Exposed to someone with COVID-19 in past 14 days?: No Do you have a sore throat?: No Do you have a cough?: No Do you have any weakness?: No Do you have any diarrhea?: No Are you experiencing any unusual bleeding?: No Do you have any muscle aches/pain?: No Do you have any abdominal pain?: No Are you experiencing loss of taste or smell?: No Other 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 Have you received the Flu Vaccine for this season: No Have you received the Pneumonia Vaccine: No ROS Obtained: Yes All systems reviewed & no additional complaints except as documented Physical Exam General General appearance: alert and in no apparent distress Head Head exam: atraumatic Eye Eye exam: Present PERRL and EOMI ENT ENT exam: Present other (Q-tip cotton in left ear canal, after removal tympanic membrane intact without laceration ) Respiratory Respiratory exam: Absent respiratory distress Cardiovascular Cardiovascular exam: Present regular rate and normal rhythm Abdominal Exam Abdominal exam: Present soft; Absent distention or tenderness Neurological Exam Neurological exam: Present alert and oriented X3 Medical Decision Making Medical Records Screening: Per USPSTF and CDC recommendations, given the prevalence of disease in our region, it is our hospital?s policy to screen for HIV and viral Hepatitis for all patients aged 18 and over and those with ongoing risk factors. Luis Felipe Inquiry Pt receiving controlled substance: No Vital Signs: 09/27/24 10:58 Temperature 98.5 F Temperature Source Oral Pulse Rate [Left Radial] 87 Respiratory Rate 13 Blood Pressure [Right Arm] 161/89 H Blood Pressure Mean [Right Arm] 113 02 Sat by Pulse Oximetry 100 Medical Decision Narrative: In summary, this 39-year-old presents to the emergency department today with foreign body. On initial evaluation patient is hemodynamically stable saturating properly on room air afebrile no acute. Differential diagnosis includes but is not limited to foreign body otitis media tympanic membrane perforation. Due to reassuring history and physical exam no further workup indicated at this time foreign body removed using alligator forcep. Otoscopic exam performed after removal without perforation of the tympanic membrane. Patient had improvement of symptoms amendable to discharge at this time. Procedures Foreign Body Removal Site: left and ear Description of foreign body: other (Cotton) Sedation/Analgesia: none Technique: removal with forceps Confirmed by:: direct visualization Complications: none Post-procedure exam: awake, alert Critical Care Critical Care Time Critical Care Time: No
[2024-09-27 11:37] VITALS: BP 103/79; PULSE 91; RESP 16; TEMP 36.9
== END 2024-09-27 11:40 | disposition home or self-care (01) ==
PROVIDERS: Emergency Provider Student in an Organized Health Care Education/Training Program; PCP Physician Assistant
DX: T16.2XXA Foreign body in left ear, initial encounter (principal); W44.8XXA Other foreign body entering into or through a natural orifice, initial encounter
CPT/HCPCS: 69200; 99283